=== PATIENT | male | born 1955 | race Caucasian/White ===

== ENCOUNTER 2019-01-31 14:12 | Inpatient (IN) | payer BC ==
[2019-01-31] MEDS ORDERED: Ondansetron ORAL SOLN. 4 MG/5 ML UDCUP PO PRN (14:41)
[2019-01-31] MEDS ORDERED: Ondansetron PF 4 MG/2 ML Vial ONE (14:50)
[2019-01-31] MEDS ORDERED: Morphine 2 MG/ML SYRINGE ONE (14:50)
[2019-01-31] MEDS ORDERED: HYDROcodone/Acetaminophen 5/325 mg Tablet PO PRN (15:01)
[2019-01-31] MEDS ORDERED: Bisacodyl 10 MG SUPP PR PRN (15:01)
[2019-01-31] MEDS ORDERED: Ondansetron PF 4 MG/2 ML Vial IVP PRN (15:01)
[2019-01-31] MEDS ORDERED: Guaifenesin DM 100-10/5 ML UDCUP PO PRN (15:01)
[2019-01-31] MEDS ORDERED: Senokot S 8.6-50 MG TAB PO PRN (15:01)
[2019-01-31] MEDS ORDERED: Sodium Chloride 0.9% 1,000 ML IV SCH (15:01)
--- NOTE | 2019-01-31 15:30 | HP ---
PRIMARY CARE PHYSICIAN: Carlitos Hernandez MD REASON FOR ADMISSION: Abdominal pain, nausea, liver mass, history of hepatitis C. HISTORY OF PRESENT ILLNESS: The patient gives history of having epigastric abdominal pain associated with nausea and with loss of appetite from last 3 days. The abdominal pain is a constant pain, which is 5 to 6/10 in intensity. It is a deep pain per the patient. He has not been able to eat or drink from last 3 days. He went to [facility], where blood work and CAT scan were done. He was found to have had liver mass and transferred here. The patient states he has had history of hepatitis C more than 20 years back and took ribavirin and interferon for 6 months, but did not complete the treatment. He states he could not tolerate it. No complaints of chest pain or palpitation. No complaints of black stools or jr bleeding. No prior history of pancreatic disease. The patient has noticed ecchymosis in both knees, back of his neck, right forearm. 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 His PEG was reversed. He is able to ambulate well with no residual paralysis now. Right hand surgery when he was 9 years old and has had transfusions done. He thinks that he might have gotten his hepatitis C then. 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 CURRENT MEDICATIONS: Takes; 1. Atorvastatin 40 mg daily. 2. Lisinopril 20 mg daily. 3. Aspirin 81 mg daily. 4. Loratadine 10 mg daily. ALLERGIES: NO KNOWN DRUG ALLERGIES. PERSONAL HISTORY: Quit smoking 4 years back when he had the stroke, prior to which has smoked 1 pack a day for 20 years. Currently drinks 2 mixed drinks a day. Uses marijuana occasionally. Does not abuse other drugs. His daughter stays with him. He ambulates by himself. FAMILY HISTORY: Mother at the age of 88. She has had history of coronary artery disease and hypertension. Father in his 90s from natural causes. CODE STATUS: Full. Power of city attorney is his daughter, Ms. Yamilet Paige. REVIEW OF SYSTEMS: CONSTITUTIONAL: Negative for weight loss or gain, ability to conduct usual activities. SKIN: Negative for rash, itching. EYES: Negative for double vision, pain. ENT/MOUTH: Negative for nose bleeding, neck stiffness, pain, tenderness. CARDIOVASCULAR: Negative for palpitations, dyspnea on exertion, orthopnea. RESPIRATORY: Negative for shortness of breath, wheezing, cough, hemoptysis, fever or night sweats. GASTROINTESTINAL: Negative for poor appetite, abdominal pain, heartburn, nausea , vomiting, constipation, or diarrhea. GENITOURINARY: Negative for urgency, frequency, dysuria, nocturia. MUSCULOSKELETAL: Negative for pain, swelling. NEUROLOGIC/PSYCHIATRIC: Negative for anxiety, depression. ALLERGY/IMMUNOLOGIC: Negative for skin rash, bleeding tendency. PHYSICAL EXAMINATION: GENERAL: The patient is a 63-year-old male, who is currently in moderate distress from abdominal pain. VITAL SIGNS: Blood pressure 146/94, pulse 78 per minute, respiratory rate 16 per minute, temperature 98.1 degrees Fahrenheit, and saturating 100% on room air. NECK: Supple. No elevated JVD. HEENT: Eyes; extraocular muscles intact. There is icterus plus. Oral cavity mucous membranes are moist. No exudates or congestion. CARDIOVASCULAR SYSTEM: S1 and S2 heard, regular rhythm. RESPIRATORY SYSTEM: Air entry 2+ bilateral. No rales or rhonchi. ABDOMEN: There is mass felt in the epigastric area, which is tender to palpate as well. This mass beneath the costal margin is around 6 x 10 cm. No rigidity or guarding. Bowel sounds are heard. EXTREMITIES: There is ecchymosis on bilateral knees on the medial aspect, posterior neck, and right forearm. These are raised ecchymotic patches. No calf tenderness. No edema. VASCULAR SYSTEM: Peripheral pulses 1+ bilateral. No ischemic ulcerations or gangrene. CENTRAL NERVOUS SYSTEM: No gross focal deficits noted. The patient is alert, awake, and oriented well. PSYCHIATRIC SYSTEM: The patient's the patient's mood is euthymic. No hallucinations or delusions. LABORATORY DATA: White count of 6, H and H are 14 and 46, platelet count 146, and MCV is 92 with 70% neutrophils. PT/INR within normal limits. PTT is 40. Electrolytes stable. BUN 13, creatinine 0.8, serum glucose 123, and lactic acid 2.9. AST 213, ALT 155, alkaline phosphatase 148, total bilirubin 1.6, albumin is 4.2. Lipase is 730. IMAGING DATA: CT of the abdomen and pelvis done shows a 13 x 9.3 x 9.5 cm heterogeneous mass in the gastrohepatic ligament. Origin of this mass could not be completely determined with certainty. Spleen is enlarged at 15.5 cm in length. There was colonic diverticulosis seen. CLINICAL IMPRESSION AND PLAN: The patient will be admitted to Oncology floor for large liver mass with prior history of hepatitis C. He has not completed full treatment for hepatitis C in the past and took 6 months of interferon and ribavirin. This was more than 20 years back per the patient. He has abdominal pain with likely hepatic capsule stretching with the mass. We will obtain an MRI of liver and pancreas protocol. Gastroenterology consultation with Dr. Blake Glynn will be requested. He has elevated lipase as well. We will continue him on 150 mL per hour of normal saline. A complete hepatitis panel and hepatitis C qualitative titers will be obtained. AFP levels. He will be on clear liquid diet for now. We will await MRI results to see if biopsy is needed or not and we will await GI opinion as well. Job ID: [id number] MTDD
[2019-01-31 17:09] VITALS: BMI 20.4
[2019-01-31] MEDS: Sodium Chloride 0.9% 1,000 ML IV SCH ×2 (17:10→20:11)
--- NOTE | 2019-01-31 17:43 | MRI ---
MRI ABDOMEN WITH AND WITHOUT IV CONTRAST: 01/31/19 HISTORY: Liver mass, abdominal pain. CORRELATION: CT abdomen and pelvis of same date. FINDINGS: The large heterogeneous mass in the gastrohepatic ligament measuring 13 x 9.3 x 9.5 cm is again seen and is located between the lesser curvature, liver, and the pancreas with loss of fat planes. There a re areas of hemorrhage and necrosis within this mass and postcontrast heterogeneous enhancement is s een. There are heterogeneous lesions in the left lobe of the liver measuring up to 2 cm. Some of these are likely metastatic lesions. The possibility of involvement of the liver itself by the mass cannot be completely excluded. Associated varicosity is seen. The spleen is enlarged. Bilateral renal cysts are present. Adrenal glands are unremarkable. The gallbladder is unremarkable. No free fluid or lymphadenopathy seen. The bone marrow signal is nor mal. There is no evidence of aneurysmal dilatation of the abdominal aorta. IMPRESSION: 1. Large heterogeneous mass in the gastrohepatic ligament suspicious for malignancy with metasta tic disease to the liver. 2. Splenomegaly. 3. Renal cysts. POS: CRISTINOH
[2019-01-31] MEDS ORDERED: GoLYTELY 4,000 ml Bottle PO SCH (19:30)
[2019-01-31] MEDS: Famotidine 20 MG TAB PO SCH (20:07)
[2019-01-31] MEDS: Atorvastatin Calcium 40 MG TAB PO SCH (20:07)
[2019-01-31 23:31] LABS: HBCM Index 0.06 S/CO (0-0.79); HBSAg Index 0.24 S/CO (0-0.99); Hep A IgM AB Non-Reactive (NonReactive); Hep A IgM S/CO 0.12 S/CO (0-0.79); Hep B Surf Ag Non-Reactive S/CO (NonReactive); Hepatitis B Core IgM Abs Non-Reactive (NonReactive)
[2019-01-31 23:35] LABS: Hep C IgG Ab Reflex HepC Qnt (NonReactive); Hep C Index 14.94 S/CO (0-0.79)
[2019-02-01] MEDS: Sodium Chloride 0.9% 1,000 ML IV SCH ×2 (00:46→06:00)
[2019-02-01] MEDS ORDERED: Ondansetron PF 4 MG/2 ML Vial ONE ×2 (06:57→11:08)
[2019-02-01] MEDS: Enoxaparin Sodium 40 MG/0.4 ML SYRINGE SC SCH (08:46)
[2019-02-01] MEDS: Famotidine 20 MG TAB PO SCH ×2 (08:46→20:16)
[2019-02-01] MEDS ORDERED: FLU VACC QS2019-20(6MOS UP)/PF 60 MCG/0.5 ML SYRINGE IM ONE (09:00)
[2019-02-01] MEDS ORDERED: Lisinopril 5 MG TAB PO SCH (09:00)
[2019-02-01] MEDS ORDERED: hydrALAZINE 20 MG/ML VIAL ONE ×2 (10:15→17:53)
[2019-02-01] MEDS: Morphine 2 MG/ML SYRINGE SLOW IVP PRN (10:23)
[2019-02-01] MEDS ORDERED: PROPOFOL 200 MG/20 ML VIAL ONE (10:57)
[2019-02-01] MEDS ORDERED: Lidocaine 1% PF 5 ML VIAL ONE (10:57)
--- NOTE | 2019-02-01 11:40 | CON ---
DATE OF CONSULTATION: 01/31/2019 REASON FOR CONSULTATION: Abnormal GI imaging showing a large hepatic mass, left upper quadrant abdominal pain. CONSULTING PROVIDER: Devante Cheema MD HISTORY OF PRESENT ILLNESS: The patient is a 63-year-old male with past medical history of hypertension, hyperlipidemia, rheumatoid arthritis, cerebrovascular accident with resultant dysphagia and hemiparesis, status post PEG but improvement with PEG removal and chronic hepatitis C with incomplete treatment with interferon/ribavirin, presenting with left upper quadrant abdominal pain. He states that over the last 2 to 3 months he has been having increased left upper quadrant abdominal pain characterized as a dull/deep type sensation. This pain has been intermittent during this time period, but occurring with more frequency within the last 2 weeks, now occurring every day. The pain will radiate to the midepigastric region and reaches a severity of 3/10. However, the patient denies any exacerbating factors, but notes that when he lies in a certain position, the pain does seem to get better/resolve. This has also been associated with increased rhinorrhea, a right upper extremity rash on the forearm nausea and vomiting x1 this morning with administration of medications. He also endorses increased polyuria, decreased urinary volume, decreased food intake and a 30-pound weight loss over the last year, but with the weight loss secondary to removal of his teeth and placement of dentures. He currently denies any hematemesis, melena, hematochezia, fevers, chills, or odynophagia. He does have some dysphagia resultant from his stroke, but is currently tolerating an oral diet without difficulty. With the increase of this abdominal pain, it prompted him to seek healthcare assistance at the [facility] and while in the ER he had a CT scan performed that showed a large mass within the abdomen concerning for involvement of the liver and ultimately transferred to [facility] for further evaluation. At the current time, the patient states that he does continue to have left upper quadrant abdominal pain, but is currently controlled with pain medications and denies any further episodes of vomiting. REVIEW OF SYSTEMS: A 10-category review of systems was obtained with all responses negative except for the pertinent positives as listed in HPI. PAST MEDICAL HISTORY: As per HPI. PAST SURGICAL HISTORY: Upper endoscopy with PEG tube placement, right hand surgery with blood transfusions at that time. FAMILY HISTORY: Denies any family history of colon polyps or colon cancer. However, his father was diagnosed with a benign liver tumor that was successfully resected. SOCIAL HISTORY: Denies any tobacco use, but currently smokes marijuana occasionally and drinks approximately 2 alcoholic beverages per day. He denies any other illicit drug use. OUTPATIENT MEDICATIONS: 1. Atorvastatin 40 mg daily. 2. Lisinopril 20 mg daily. 3. Aspirin 81 mg daily. 4. Loratadine 10 mg daily. 5. Benadryl p.r.n. ALLERGIES: NO KNOWN DRUG ALLERGIES. PHYSICAL EXAMINATION: VITAL SIGNS: Temperature 97.4, pulse 98, blood pressure 166/84, respiratory rate 18, saturating 95% on room air. GENERAL: The patient is lying in bed, in no acute distress. Alert and oriented x4. HEENT: Normocephalic, atraumatic. NECK: Supple. No JVD or scleral icterus noted. CARDIOVASCULAR: Regular rate and rhythm with no discernible murmurs, gallops, or rubs. RESPIRATORY: Clear to auscultation bilaterally with no discernible wheezes or rales. ABDOMEN: Normoactive bowel sounds. Soft, nondistended. Tenderness to palpation in the midepigastric and left upper quadrant with a palpable mass felt within the midepigastric, extending into the right upper quadrant. EXTREMITIES: No cyanosis, clubbing, or edema. LABORATORY DATA: CBC with a , hemoglobin 14.7, hematocrit 46.6, platelets 146. INR 1.1. Chemistry with a sodium of 137, potassium 4, chloride 98, CO2 of 25, BUN 13, creatinine 0.8, glucose 123. AST 213, ALT 155, alkaline phosphatase 148, total bilirubin 1.6, albumin 4.2, lipase 730, CEA 32.16. IMAGING DATA: MRI of the abdomen with and without contrast was obtained on January 31, 2019, which showed a large heterogeneous mass in the gastrohepatic ligament measuring 13 x 9.3 x 9.5 cm and located between the lesser curvature, liver and the pancreas with loss of fat planes. There was areas of hemorrhage and necrosis within the mass concerning for malignant type process. There were also heterogeneous lesions within the liver measuring up to 2 cm in size, likely metastatic lesions from the unknown primary. The possibility of involvement of the liver itself by the mass could not be completely excluded. Splenomegaly was also seen. CT scan of the abdomen and pelvis was performed on January 31, 2019, and it showed calcified granuloma within the left lung base, but did also comment on the heterogeneous mass in the gastrohepatic ligament measuring 13 x 9.3 x 9.5 cm with the fat planes between the mass and the left lobe of the liver, stomach and anterior aspect of pancreas not clearly identified. No abnormal biliary ductal dilatation was seen. However, splenomegaly was also seen during this study. There was no evidence of free air, free fluid or lymphadenopathy seen in the abdomen or pelvis, although colonic diverticulosis was seen within the large intestine. ASSESSMENT AND PLAN: The patient is a 63-year-old male with past medical history of hypertension, hyperlipidemia, cerebrovascular accident with resultant dysphagia status post percutaneous endoscopic gastrostomy, but recovery, rheumatoid arthritis and chronic hepatitis C infection (partially treated with 6 months of interferon/ribavirin), presenting with left upper quadrant abdominal pain and abnormal GI imaging consistent with a probable malignancy. Left upper quadrant abdominal pain/abnormal GI imaging. The patient has been experiencing increased left upper quadrant abdominal pain that has been present for the last 2 to 3 months and progressively getting more frequent over the last 1 to 2 weeks. The pain is characterized as a dull/deep tight sensation. It is intermittent with no clear exacerbating factors, but alleviated with certain positional changes. On evaluation in the [facility], he had a CT scan that showed the presence of a large mass within in the epigastrium that seems to be involving the liver and extension into the stomach and pancreas, but unclear of its involvement in either of the structures. On laboratory review, he does have significantly elevated AST and ALT indicative of the an inflammatory process affecting the liver, most likely secondary to this large mass. He does have a mildly elevated bilirubin, which is concerning for possible biliary obstruction or impending biliary obstruction, although the CT scan does not show any intrahepatic dilatation consistent with that diagnosis. Lastly, he does have an elevated carcinoembryonic antigen as well as an AFP greater than 40,000 concerning for a possible colonic primary or hepatocellular carcinoma respectively. At this time, the origin of the mass seems to be GI in origin. However, with it involving the liver, the stomach and the pancreas as well as metastatic lesions in the liver, a colonic primary cannot be ruled out at this time. RECOMMENDATIONS: 1. We would place the patient on a clear liquid diet and n.p.o. at midnight except for medications in anticipation of endoscopy tomorrow. 2. We will plan for both EGD and colonoscopy tomorrow for further evaluation of the GI tract and possible primary malignancy. 3. We will obtain hepatitis C serologies including viral load and genotype. 4. If the endoscopies are negative for overt pathology, the patient may need either surgical biopsy or fine-needle aspiration for more definitive diagnosis. However, with an AFP of greater than 40,000, if an intraluminal malignancy is not found hepatocellular carcinoma is the most likely origin. 5. Pain control per primary team. 6. We will continue to follow. Please call with any questions. Job ID: [id number]
[2019-02-01 12:54] LABS: #Eosinphils 0.1 thou/uL (0.0-0.7); #Lymphocytes 1.2 thou/uL (1.20-3.40); #Monocytes 0.6 thou/uL (0.11-0.59); #Neutrophils 4.2 thou/uL (1.40-6.50); %Basophils 0.5 % (0.0-1.0); %Eosinophils 2.1 % (0.0-10.0); %Lymphocytes 19.8 % (21.0-51.0); %Monocytes 10.1 % (0.0-10.0); %Neutrophils 67.5 % (42.0-75.0); Hemoglobin 12.3 g/dL (14.0-18.0); Mean Corpuscular HGB CONC 32.2 g/dL (32.0-36.0); Mean Corpuscular Volume 93.1 fL (78.0-98.0); Mean Platelet Volume 9.7 fL (7.4-10.4); Platelet Count 137 thou/uL (130-400); RBC Distribution Width 12.8 % (11.5-14.5); White Blood Cell (WBC) Count 6.3 thou/uL (4.8-10.8)
--- NOTE | 2019-02-01 13:54 | OP ---
DATE OF PROCEDURE: 02/01/2019 PROCEDURES PERFORMED: 1. Esophagogastroduodenoscopy. 2. Colonoscopy. PREMEDICATION: Given by Anesthesiology Department. PREPROCEDURE DIAGNOSIS: Large upper abdominal mass, on CT. POSTPROCEDURE DIAGNOSES: 1. Normal upper endoscopy. 2. Diverticulosis coli, otherwise normal colon exam. DESCRIPTION OF PROCEDURE: Written consents were obtained prior to procedure. After adequate sedation, forward-viewing endoscope was advanced down the stomach under direct vision to the second portion of duodenum. The duodenum and the bulb appeared normal. The pylorus was patent. The gastric antrum, body, fundus, and cardia all appeared normal. Retroflexion did not show any abnormality. The GE junction with a regular Z-line was noted at 43 cm from the incisors. The lower, mid, and upper esophagus appeared normal. The patient was then repositioned for colonoscopy. Rectal exam performed was normal. The endoscope was advanced to the cecum. The quality of the bowel prep was good. The cecum, ileocecal valve, and appendiceal orifice were visualized and appeared normal. The ascending colon, hepatic flexure, transverse colon, splenic flexure, and descending colon appeared normal. Scattered diverticula were noted in the sigmoid colon with some intraluminal narrowing. The rectal vault appeared normal. Retroflexion showed small internal hemorrhoids. The patient tolerated the procedure well. ASSESSMENT: Normal upper endoscopy and colonoscopy. RECOMMENDATIONS: Consult Interventional Radiology for percutaneous biopsy of the mass seen on CT and MRI. Job ID: [id number]
[2019-02-01] MEDS: Acetaminophen 325 MG TAB PO PRN (16:28)
[2019-02-01] MEDS: Lidocaine 5% Patch TD SCH (16:29)
[2019-02-01] MEDS ORDERED: Labetalol HCl 100 MG/20 ML VIAL SLOW IVP PRN (17:11)
[2019-02-01] MEDS ORDERED: hydrALAZINE 20 MG/ML VIAL SLOW IVP PRN (17:11)
[2019-02-01] MEDS ORDERED: Lisinopril 20 MG TAB PO SCH (17:15)
--- NOTE | 2019-02-01 17:19 | PDOC.HOSPP ---
- Subjective Encounter Date: 02/01/19 Encounter Time: 09:00 Subjective: Pt seen for followup re: liver mass. Denies chest pain or shortness of breath. Endorses LUQ discomfort. - Objective Vital Signs & Weight: Vital Signs (12 hours) Temp Pulse Resp BP BP Pulse Ox 02/01/19 16:00 97.8 F 96 16 202/96 H 96 02/01/19 13:22 98.1 F 91 18 172/91 H 97 02/01/19 10:18 99 205/113 H 02/01/19 08:46 99 178/100 H Weight Weight 142 lb 2 oz Labs and MARs reviewed by me I&O: 01/31/19 02/01/19 02/02/19 06:59 06:59 06:59 Intake Total 700 Balance 700 Result Diagrams: 02/01/19 07:00 Additional Labs: Labs and MARs reviewed by mt Hospitalist ROS - Review of Systems Cardiovascular: denies: chest pain, palpitations, orthopnea, paroxysmal noc. dyspnea, edema, light headedness Gastrointestinal: reports: abdominal pain. denies: nausea, vomiting, diarrhea, constipation, melena, hematochezia Skin: reports: marta - Medication Medications: Active Medications Generic Name Dose Route Start Last Admin Trade Name Freq PRN Reason Stop Dose Admin Acetaminophen 650 mg 01/31/19 15:01 02/01/19 16:28 Tylenol PO 650 mg Q4H PRN Administration Headache/Fever/Mild Pain (1-3) Atorvastatin Calcium 40 mg 01/31/19 21:00 01/31/19 20:07 Lipitor PO 40 mg HS RUIZ Administration Enoxaparin Sodium 40 mg 02/01/19 09:00 02/01/19 08:46 Lovenox SC Not Given 0900 RUIZ Famotidine 20 mg 01/31/19 21:00 02/01/19 08:46 Pepcid PO Not Given BID RUIZ Lidocaine 2 patch 02/01/19 09:00 02/01/19 16:29 Lidoderm 5% Patch TD Not Given DAILY RUIZ Morphine Sulfate 2 mg 01/31/19 15:01 02/01/19 10:23 Morphine SLOW IVP 2 mg Q4H PRN Administration Pain - Exam General Appearance: NAD Eye: scleral icterus ENT: normocephalic atraumatic Neck: supple, no JVD Heart: RRR Respiratory: CTAB, no rales Gastrointestinal: soft, non-tender Psychiatric: normal affect, normal behavior Hosp A/P (1) Liver mass Code(s): R16.0 - HEPATOMEGALY, NOT ELSEWHERE CLASSIFIED Status: Acute (2) Hypertensive urgency Code(s): I16.0 - HYPERTENSIVE URGENCY Status: Acute (3) Abnormal LFTs Code(s): R94.5 - ABNORMAL RESULTS OF LIVER FUNCTION STUDIES Status: Acute (4) Dyslipidemia Code(s): E78.5 - HYPERLIPIDEMIA, UNSPECIFIED Status: Chronic - Plan out of bed/ambulate Pt to have EGD. Add PRN IV antihypertensives, monitor vital signs and titrate antihypertensives as needed. Continue statin.
[2019-02-01 19:45] LABS: ALT (SGPT) 106 U/L (8-55); AST (SGOT) 163 U/L (5-34); Albumin 3.4 g/dL (3.4-4.8); Alkaline Phosphatase 101 U/L (40-110); Anion Gap 12 mmol/L (10-20); BUN (Urea Nitrogen) 8 mg/dL (8.4-25.7); Bilirubin, Total 1.3 mg/dL (0.2-1.2); Calc. Creatinine Clearance 103 mL/min (70-130); Calcium 8.6 mg/dL (7.8-10.44); Carbon Dioxide 24 mmol/L (23-31); Chloride 106 mmol/L (98-107); Estimated GFR-MDRD Greater than 90; Globulin 2.8 g/dL (2.4-3.5); Glucose 95 mg/dL (80-115); Potassium 3.7 mmol/L (3.5-5.1); Protein, Total 6.2 g/dL (5.8-8.1); Sodium 138 mmol/L (136-145)
[2019-02-01] MEDS: Atorvastatin Calcium 40 MG TAB PO SCH (20:16)
[2019-02-02] MEDS: Acetaminophen 325 MG TAB PO PRN ×2 (00:43→17:48)
[2019-02-02] MEDS: Morphine 2 MG/ML SYRINGE SLOW IVP PRN ×2 (06:03→17:37)
[2019-02-02 06:08] LABS: #Basophils 0.1 thou/uL (0.0-0.2); #Eosinphils 0.1 thou/uL (0.0-0.7); #Lymphocytes 1.5 thou/uL (1.20-3.40); #Monocytes 1.1 thou/uL (0.11-0.59); %Basophils 0.7 % (0.0-1.0); %Eosinophils 1.2 % (0.0-10.0); %Lymphocytes 14.1 % (21.0-51.0); %Monocytes 10.5 % (0.0-10.0); %Neutrophils 73.5 % (42.0-75.0); Hemoglobin 13.3 g/dL (14.0-18.0); Mean Corpuscular HGB CONC 32.4 g/dL (32.0-36.0); Mean Corpuscular Hemoglobin 29.6 pg (27.0-31.0); Mean Corpuscular Volume 91.5 fL (78.0-98.0); Platelet Count 170 thou/uL (130-400); RBC Distribution Width 12.9 % (11.5-14.5); Red Blood Cell (RBC) Count 4.48 mill/uL (4.70-6.10); White Blood Cell (WBC) Count 10.8 thou/uL (4.8-10.8)
[2019-02-02] MEDS ORDERED: Atorvastatin Calcium 40 MG TAB PO SCH (09:00)
[2019-02-02] MEDS ORDERED: Midazolam HCl 2 mg/2 ml Vial ONE (10:52)
[2019-02-02] MEDS ORDERED: Sodium Bicarbonate 2.5 MEQ/5 ML VIAL ONE (10:52)
[2019-02-02] MEDS ORDERED: Fentanyl 100 MCG/2 ML VIAL ONE (10:52)
[2019-02-02] MEDS: Lidocaine 5% Patch TD SCH (11:29)
[2019-02-02] MEDS: Famotidine 20 MG TAB PO SCH ×2 (14:33→20:25)
[2019-02-02] MEDS: Lisinopril 20 MG TAB PO SCH (14:34)
--- NOTE | 2019-02-02 15:09 | CT ---
CT-guided large intra-abdominal mass percutaneous core biopsy INDICATION: Large heterogeneous mass, centered within the gastrohepatic ligament concern for possible GI ST, a sarcomatous lesion or exophytic hepatic malignancy. TECHNIQUE: Informed consent was obtained. Preprocedure CT images were obtained for guidance purposes only. Site overlying the large intra-abdominal mass lesion was marked. The site was prepped and draped in the usual sterile fashion. The patient underwent conscious sedation guidance of the radiolo gy nurse. The patient received 1.5 mg of IV Versed and 100 mcg of IV fentanyl. Buffered 1% lidocaine was administered to the overlying subcutaneous tissues. Small dermatotomy was made. A 17-ga uge trocar needle was guided down to the level of the lesion. 3 core samples were obtained utilizing an 18-gauge core biopsy gun. Pathology was on-site to confirm adequacy of tissue sampling. Small pledget of Gelfoam was inserted into the trocar needle and injected into the biopsy site prior to removal of the trocar needle. Pressure was held at the biopsy site until hemostasis was obta ined. Patient tolerated the biopsy without difficulty. Postprocedural images initially no significant intralesional hemorrhage or intra-abdominal wall hemorrhage noted. IMPRESSION: Successful CT-guided biopsy of a large intra-abdominal mass.
--- NOTE | 2019-02-02 15:27 | PDOC.HOSPP ---
- Subjective Encounter Date: 02/02/19 Encounter Time: 09:00 Subjective: Pt seen for followup re: liver mass. States he feels better, no complaints today. - Objective Vital Signs & Weight: Vital Signs (12 hours) Temp Pulse Resp BP BP Pulse Ox 02/02/19 14:34 185/92 H 02/02/19 11:30 84 185/92 H 02/02/19 08:00 99.0 F 84 18 174/93 H 96 Weight Weight 142 lb 2 oz I&O: 02/01/19 02/02/19 02/03/19 06:59 06:59 06:59 Intake Total 700 240 Balance 700 240 Result Diagrams: 02/02/19 05:35 02/01/19 07:00 Additional Labs: Labs and MARs reviewed by hi Hospitalist ROS - Review of Systems Cardiovascular: denies: chest pain, palpitations, orthopnea, paroxysmal noc. dyspnea, edema, light headedness Gastrointestinal: denies: nausea, vomiting, abdominal pain, diarrhea, constipation, melena, hematochezia - Medication Medications: Active Medications Generic Name Dose Route Start Last Admin Trade Name Freq PRN Reason Stop Dose Admin Acetaminophen 650 mg 01/31/19 15:01 02/02/19 00:43 Tylenol PO 650 mg Q4H PRN Administration Headache/Fever/Mild Pain (1-3) Atorvastatin Calcium 40 mg 01/31/19 21:00 02/01/19 20:16 Lipitor PO 40 mg HS RUIZ Administration Enoxaparin Sodium 40 mg 02/01/19 09:00 02/01/19 08:46 Lovenox SC Not Given 0900 [facility] Famotidine 20 mg 01/31/19 21:00 02/02/19 14:33 Pepcid PO 20 mg BID RUIZ Administration Hydralazine HCl 10 mg 02/01/19 17:11 02/02/19 11:30 Apresoline SLOW IVP 10 mg Q6H PRN Administration SBP Greater Than 170 Lidocaine 2 patch 02/01/19 09:00 02/02/19 11:29 Lidoderm 5% Patch TD Not Given DAILY RUIZ Lisinopril 20 mg 02/02/19 09:00 02/02/19 14:34 Zestril PO 20 mg DAILY RUIZ Administration Morphine Sulfate 2 mg 01/31/19 15:01 02/02/19 06:03 Morphine SLOW IVP 2 mg Q4H PRN Administration Pain - Exam General Appearance: NAD Eye: scleral icterus ENT: moist mucosa Neck: supple, no JVD Heart: RRR Respiratory: CTAB, no rales Gastrointestinal: soft, non-tender Extremities: no clubbing Psychiatric: normal affect, normal behavior Hosp A/P (1) Liver mass Code(s): R16.0 - HEPATOMEGALY, NOT ELSEWHERE CLASSIFIED Status: Acute (2) Abnormal LFTs Code(s): R94.5 - ABNORMAL RESULTS OF LIVER FUNCTION STUDIES Status: Acute (3) Dyslipidemia Code(s): E78.5 - HYPERLIPIDEMIA, UNSPECIFIED Status: Chronic (4) Hypertensive urgency Code(s): I16.0 - HYPERTENSIVE URGENCY Status: Resolved - Plan out of bed/ambulate For biopsy today. Morphine PRN for pain. Continue statin.
--- NOTE | 2019-02-02 17:06 | PRG ---
DATE OF SERVICE: 02/02/2019 SUBJECTIVE: The patient appears comfortable. Continues with low-grade upper abdominal pain. There is no nausea or vomiting. He had an uncomplicated percutaneous CT-guided biopsy of the abdominal mass earlier this afternoon. OBJECTIVE: VITAL SIGNS: Temperature is 99.0, blood pressure 185/92, pulse of 84. GENERAL: He is alert, lucid, in no distress. HEENT: Shows anicteric sclerae. There is some temporal wasting. Oropharynx is clear. Poor dentition. CV: Shows normal S1 and S2. Regular rate and rhythm. CHEST: Shows breath sounds. ABDOMEN: Showed a palpable firm mass in the upper third of the abdomen. He has active bowel sounds. No distention or tympany. EXTREMITIES: Exam shows no edema. LABORATORY DATA: WBCs 10.8, hemoglobin 13.3, platelet count of 170. ASSESSMENT: 1. Large upper abdominal mass, status post percutaneous CT-guided biopsy. Likely, malignancy. 2. Negative esophagogastroduodenoscopy and colonoscopy. 3. Overall stable from gastrointestinal standpoint with intact gastrointestinal function. RECOMMENDATIONS: 1. No new GI recommendation. 2. Await biopsy results. We will likely need Oncology evaluation in or outpatient. Job ID: [id number]
[2019-02-02] MEDS ORDERED: Acetaminophen 325 MG TAB PO PRN (18:17)
[2019-02-02] MEDS: Atorvastatin Calcium 40 MG TAB PO SCH (20:25)
[2019-02-03] MEDS: Morphine 2 MG/ML SYRINGE SLOW IVP PRN ×3 (02:42→16:12)
[2019-02-03 05:59] LABS: #Eosinphils 0.1 thou/uL (0.0-0.7); #Lymphocytes 1.4 thou/uL (1.20-3.40); #Neutrophils 5.5 thou/uL (1.40-6.50); %Basophils 0.5 % (0.0-1.0); %Eosinophils 1.5 % (0.0-10.0); %Lymphocytes 17.4 % (21.0-51.0); %Monocytes 12.2 % (0.0-10.0); %Neutrophils 68.5 % (42.0-75.0); Hemoglobin 11.4 g/dL (14.0-18.0); Mean Corpuscular HGB CONC 33.5 g/dL (32.0-36.0); Mean Corpuscular Hemoglobin 30.3 pg (27.0-31.0); Mean Corpuscular Volume 90.6 fL (78.0-98.0); Mean Platelet Volume 8.8 fL (7.4-10.4); Platelet Count 130 thou/uL (130-400); RBC Distribution Width 12.5 % (11.5-14.5); Red Blood Cell (RBC) Count 3.75 mill/uL (4.70-6.10)
[2019-02-03] MEDS: Lidocaine 5% Patch TD SCH (08:02)
[2019-02-03] MEDS: Acetaminophen 325 MG TAB PO PRN ×2 (08:02→17:28)
[2019-02-03] MEDS: Lisinopril 20 MG TAB PO SCH (08:02)
[2019-02-03] MEDS: Famotidine 20 MG TAB PO SCH ×2 (08:02→20:19)
[2019-02-03] MEDS ORDERED: Simethicone Chewable 80 MG TAB PO PRN (13:00)
--- NOTE | 2019-02-03 18:23 | PDOC.HOSPP ---
- Subjective Encounter Date: 02/03/19 Encounter Time: 08:40 Subjective: Pt seen for followup re: liver mass. No complaints today. - Objective Vital Signs & Weight: Vital Signs (12 hours) Temp Pulse Resp BP BP BP Pulse Ox 02/03/19 18:11 99.0 F 02/03/19 17:23 102.7 F H 158/89 H 02/03/19 16:23 100.2 F H 84 16 180/90 H 94 L 02/03/19 11:15 99.5 F 81 16 137/83 97 02/03/19 08:02 168/93 H 02/03/19 07:58 86 L 02/03/19 07:30 100.2 F H 86 18 168/93 H 96 Weight Weight 142 lb 2 oz I&O: 02/02/19 02/03/19 02/04/19 06:59 06:59 06:59 Intake Total 751 915 5947 Balance 454 918 1505 Result Diagrams: 02/03/19 05:38 02/01/19 07:00 Additional Labs: Labs and MARs reviewed by ms Hospitalist ROS - Review of Systems Cardiovascular: denies: chest pain, palpitations, orthopnea, paroxysmal noc. dyspnea, edema, light headedness Gastrointestinal: denies: nausea, vomiting, abdominal pain, diarrhea, constipation, melena, hematochezia Genitourinary: denies: dysuria, frequency, incontinence, hematuria, retention - Medication Medications: Active Medications Generic Name Dose Route Start Last Admin Trade Name Freq PRN Reason Stop Dose Admin Acetaminophen 325 mg 02/02/19 18:29 02/03/19 17:28 Tylenol PO 325 mg Q6H PRN Administration .FEVER Atorvastatin Calcium 40 mg 01/31/19 21:00 02/02/19 20:25 Lipitor PO 40 mg HS RUIZ Administration Enoxaparin Sodium 40 mg 02/01/19 09:00 02/01/19 08:46 Lovenox SC Not Given 0900 RUIZ Famotidine 20 mg 01/31/19 21:00 02/03/19 08:02 Pepcid PO 20 mg BID RUIZ Administration Hydralazine HCl 10 mg 02/01/19 17:11 02/02/19 11:30 Apresoline SLOW IVP 10 mg Q6H PRN Administration SBP Greater Than 170 Labetalol HCl 10 mg 02/01/19 17:11 02/02/19 17:34 Normodyne SLOW IVP 10 mg Q8H PRN Administration SBP Greater Than 180 Lidocaine 2 patch 02/01/19 09:00 02/03/19 08:02 Lidoderm 5% Patch TD 2 patch DAILY RUIZ Administration Lisinopril 20 mg 02/02/19 09:00 02/03/19 08:02 Zestril PO 20 mg DAILY RUIZ Administration Morphine Sulfate 2 mg 01/31/19 15:01 02/03/19 16:12 Morphine SLOW IVP 2 mg Q4H PRN Administration Pain - Exam General Appearance: NAD Eye: scleral icterus ENT: no oropharyngeal lesions Neck: no JVD, no thyromegaly Heart: RRR, no gallops Respiratory: CTAB, no rales, no ronchi Gastrointestinal: soft, non-tender Extremities - other findings: rheumatoid changes in fingers Skin: no rashes Psychiatric: normal affect, normal behavior Hosp A/P (1) Liver mass Code(s): R16.0 - HEPATOMEGALY, NOT ELSEWHERE CLASSIFIED Status: Acute (2) Abnormal LFTs Code(s): R94.5 - ABNORMAL RESULTS OF LIVER FUNCTION STUDIES Status: Acute (3) Dyslipidemia Code(s): E78.5 - HYPERLIPIDEMIA, UNSPECIFIED Status: Chronic (4) Hypertensive urgency Code(s): I16.0 - HYPERTENSIVE URGENCY Status: Resolved - Plan out of bed/ambulate s/p biopsy Morphine PRN for pain. Continue statin. Consult oncology. Likely home in 24-48 hrs.
[2019-02-03] MEDS: Atorvastatin Calcium 40 MG TAB PO SCH (20:18)
--- NOTE | 2019-02-03 22:49 | CON ---
DATE OF CONSULTATION: REASON FOR CONSULTATION: Abdominal mass. HISTORY OF PRESENT ILLNESS: Mr. Paige is a 63-year-old gentleman, who presented to an outlying ER with abdominal pain and weight loss. He underwent a CT scan, which showed a 13 x 9.3 x 9.5 cm mass in the gastrohepatic ligament. He had a splenomegaly measuring 15.5 cm. He was transferred to this facility and admitted for further workup. GI saw the patient and performed upper and lower endoscopy, both of which were normal. He then had a CT-guided biopsy of this mass. Path is currently pending. The patient claims a 50-pound weight loss over the past year. He initially blamed his new dentures as it hurt to eat, but does admit now to early satiety and fullness with just a few bites of food. He has a history of hepatitis C that was partially treated in the past. The patient was seen at bedside and denies any complaints. His daughter was present for the conversation. PAST MEDICAL HISTORY: Hepatitis C, hypertension, hyperlipidemia, rheumatoid arthritis, history of a CVA with no residual effect. PAST SURGICAL HISTORY: PEG tube placement, right hand surgery. ALLERGIES: NO KNOWN DRUG ALLERGIES. HOME MEDICATIONS: 1. Aspirin. 2. Atorvastatin. 3. Lisinopril. 4. Loratadine. FAMILY HISTORY: Father had a benign liver tumor. SOCIAL HISTORY: Positive for marijuana and alcohol use. Lives with his daughter. REVIEW OF SYSTEMS: A 10-point review of systems is negative except for noted in HPI. PHYSICAL EXAMINATION: VITAL SIGNS: Temperature is 100.2, pulse is 84, respiratory rate 16, BP is 180/90, he is 94% on room air. GENERAL: This is a thin male, who appears older than his stated age. HEENT: Normocephalic, atraumatic. Pupils are equal and reactive to light. NECK: Supple. CV: Regular rate and rhythm. LUNGS: Clear anterior. ABDOMEN: Distended. He has hepatosplenomegaly. EXTREMITIES: No clubbing or cyanosis. SKIN: No rash. HEMATOLOGICAL: No petechiae or purpura. NEUROLOGICAL: Nonfocal. PERTINENT LABS AND X-RAYS: Current WBCs are 8.0, hemoglobin 11.4, hematocrit 34.0, platelet count is 130,000. He has 68% neutrophils, 17% lymphocytes. PT is 14.5, INR is 1.1, and PTT is 40.1. Sodium is 138, potassium 3.7, chloride is 106, CO2 is 24, BUN is 8, creatinine is 0.66, calcium is 8.6, bilirubin is 1.3, AST is 163, ALT is 106, alkaline phosphatase is 101. AFP is greater than 40,000. CEA is 32. Radiology, per HPI. ASSESSMENT: 1. Large abdominal mass involving the liver with extension to the stomach and pancreas. 2. Elevated alpha-fetoprotein and carcinoembryonic antigen. 3. History of hepatitis C. DISCUSSION: The patient has had this mass biopsied. Path is currently pending. Given his elevated tumor markers, certainly has a malignancy of either a hepatoma or a colon primary. The patient will follow up with Dr. Phelan in the outpatient setting to discuss diagnosis, prognosis, and treatment options. Thank you for the consult. Job ID: [id number]
[2019-02-04] MEDS: Acetaminophen 325 MG TAB PO PRN (04:46)
[2019-02-04] MEDS: Morphine 2 MG/ML SYRINGE SLOW IVP PRN ×2 (04:47→19:00)
[2019-02-04 07:02] LABS: #Basophils 0.1 thou/uL (0.0-0.2); #Eosinphils 0.2 thou/uL (0.0-0.7); #Monocytes 1.2 thou/uL (0.11-0.59); #Neutrophils 6.4 thou/uL (1.40-6.50); %Basophils 0.6 % (0.0-1.0); %Eosinophils 1.9 % (0.0-10.0); %Lymphocytes 11.2 % (21.0-51.0); %Monocytes 13.3 % (0.0-10.0); Mean Corpuscular HGB CONC 33.4 g/dL (32.0-36.0); Mean Corpuscular Hemoglobin 30.1 pg (27.0-31.0); Mean Corpuscular Volume 90.3 fL (78.0-98.0); Mean Platelet Volume 8.6 fL (7.4-10.4); Platelet Count 148 thou/uL (130-400); RBC Distribution Width 12.6 % (11.5-14.5); Red Blood Cell (RBC) Count 3.98 mill/uL (4.70-6.10); White Blood Cell (WBC) Count 8.7 thou/uL (4.8-10.8)
[2019-02-04] MEDS: Famotidine 20 MG TAB PO SCH ×2 (08:47→20:03)
[2019-02-04] MEDS: Lisinopril 20 MG TAB PO SCH (08:47)
[2019-02-04] MEDS: Lidocaine 5% Patch TD SCH (08:48)
[2019-02-04] MEDS: Enoxaparin Sodium 40 MG/0.4 ML SYRINGE SC SCH (08:48)
--- NOTE | 2019-02-04 15:35 | RAD ---
EXAM: Chest 2 views: HISTORY: Infection COMPARISON: None. FINDINGS: There is a normal-sized cardiomediastinal silhouette. Atherosclerotic calcifications are seen in the aorta. There is no evidence of consolidation, mass, or pleural effusion. The bones are unremarkable. IMPRESSION: No evidence of acute cardiopulmonary disease
[2019-02-04 15:54] LABS: Bacteria/HPF None Seen HPF (None Seen); Bilirubin 1+ (Negative); Blood, Urine 2+ (Negative); Clarity Clear (Clear); Glucose, Urine (Dipstick) Normal (Negative); Leukocyte Negative Leu/uL (Negative); Nitrite Negative (Negative); Protein, Urine (Dipstick) 70 mg/dL (Neg-Trace); Squamous Epithelial None Seen HPF (0-3); Urobilinogen Greater than 12 mg/dL (Less than 2); WBC/HPF 0-3 HPF (0-3)
[2019-02-04 15:56] LABS: Urine Culture Reflex No No
--- NOTE | 2019-02-04 16:39 | PDOC.HOSPP ---
- Subjective Encounter Date: 02/04/19 Encounter Time: 10:00 Subjective: Pt seen for followup re: liver mass. No complaints. - Objective Vital Signs & Weight: Vital Signs (12 hours) Temp Pulse Resp BP BP Pulse Ox 02/04/19 15:48 98.4 F 93 17 160/90 H 95 02/04/19 11:25 98.9 F 90 16 156/81 H 97 02/04/19 08:47 137/82 02/04/19 08:40 96 02/04/19 07:33 98.9 F 71 18 137/82 96 02/04/19 06:46 99 F Weight Weight 142 lb 2 oz I&O: 02/03/19 02/04/19 02/05/19 06:59 06:59 06:59 Intake Total 240 1350 Balance 240 1350 Result Diagrams: 02/04/19 06:26 02/01/19 07:00 Additional Labs: Labs reviewed by mo Hospitalist ROS - Review of Systems Constitutional: denies: fever, chills, sweats, weakness, malaise Cardiovascular: denies: chest pain, palpitations, orthopnea, paroxysmal noc. dyspnea, edema, light headedness - Medication Medications: Active Medications Generic Name Dose Route Start Last Admin Trade Name Freq PRN Reason Stop Dose Admin Acetaminophen 325 mg 02/02/19 18:29 02/04/19 04:46 Tylenol PO 325 mg Q6H PRN Administration .FEVER Hydrocodone Bitart/Acetaminophen 1 tab 01/31/19 15:01 02/03/19 20:18 [place] 5/325 PO 1 tab Q4H PRN Administration Moderate Pain (4-6) Atorvastatin Calcium 40 mg 01/31/19 21:00 02/03/19 20:18 Lipitor PO 40 mg HS RUIZ Administration Enoxaparin Sodium 40 mg 02/01/19 09:00 02/04/19 08:48 Lovenox SC Not Given 0900 RUIZ Famotidine 20 mg 01/31/19 21:00 02/04/19 08:47 Pepcid PO 20 mg BID RUIZ Administration Hydralazine HCl 10 mg 02/01/19 17:11 02/02/19 11:30 Apresoline SLOW IVP 10 mg Q6H PRN Administration SBP Greater Than 170 Labetalol HCl 10 mg 02/01/19 17:11 02/02/19 17:34 Normodyne SLOW IVP 10 mg Q8H PRN Administration SBP Greater Than 180 Lidocaine 2 patch 02/01/19 09:00 02/04/19 08:48 Lidoderm 5% Patch TD 2 patch DAILY RUIZ Administration Lisinopril 20 mg 02/02/19 09:00 02/04/19 08:47 Zestril PO 20 mg DAILY RUIZ Administration Morphine Sulfate 2 mg 01/31/19 15:01 02/04/19 04:47 Morphine SLOW IVP 2 mg Q4H PRN Administration Pain - Exam General Appearance: NAD Eye: scleral icterus ENT: normocephalic atraumatic Neck: supple Heart: RRR Respiratory: CTAB, no rales Gastrointestinal: soft, non-tender Musculoskeletal: normal tone, normal strength Psychiatric: normal affect, normal behavior, oriented to person, oriented to place Hosp A/P (1) Liver mass Code(s): R16.0 - HEPATOMEGALY, NOT ELSEWHERE CLASSIFIED Status: Acute (2) Abnormal LFTs Code(s): R94.5 - ABNORMAL RESULTS OF LIVER FUNCTION STUDIES Status: Acute (3) Dyslipidemia Code(s): E78.5 - HYPERLIPIDEMIA, UNSPECIFIED Status: Chronic (4) Hypertensive urgency Code(s): I16.0 - HYPERTENSIVE URGENCY Status: Resolved - Plan out of bed/ambulate s/p biopsy Morphine PRN for pain. Continue statin. Consult oncology. Likely home in 24-48 hrs.
[2019-02-04] MEDS: Atorvastatin Calcium 40 MG TAB PO SCH (20:03)
[2019-02-05] MEDS: Morphine 2 MG/ML SYRINGE SLOW IVP PRN (01:54)
[2019-02-05 07:38] VITALS: BP 148/83
[2019-02-05] MEDS: Enoxaparin Sodium 40 MG/0.4 ML SYRINGE SC SCH (08:54)
[2019-02-05] MEDS: Lisinopril 20 MG TAB PO SCH (08:55)
[2019-02-05] MEDS: Famotidine 20 MG TAB PO SCH (08:55)
[2019-02-05] MEDS: Lidocaine 5% Patch TD SCH (08:56)
[2019-02-05 11:46] VITALS: TEMP 98.9
--- NOTE | 2019-02-05 23:55 | DIS ---
DATE OF ADMISSION: 01/31/2019 DATE OF DISCHARGE: 02/05/2019 PRIMARY CARE PROVIDER: Dr. Carlitos Hernandez. DISCHARGE DIAGNOSES: 1. Liver mass. 2. Abnormal liver function tests. 3. Hypertensive urgency. CONDITION OF PATIENT ON THE DAY OF DISCHARGE: Stable. I assessed Mr. Paige on the day of discharge. He denies any chest pain or shortness of breath. Vital signs are stable. S1 and S2 are heard, regular. Lungs are clear to auscultation bilaterally. CONSULTATIONS DURING THIS HOSPITALIZATION: Gastroenterology, Dr. Glynn and Oncology, Ms. Kaitlyn Sharpegent. POST-ACUTE CARE FOLLOWUP: With primary care provider in 3 days' time and with Oncology, Dr. Richard Phelan on 02/16/2019. HOSPITAL COURSE: Mr. Paige is a pleasant 63-year-old gentleman, who was admitted to [facility] for liver mass and abnormal liver function tests on 01/31/2019. Please refer to Dr. Cheema's history and physical note dated 01/31/2019, for further details. He was seen by GI Service. He underwent EGD and colonoscopy, which were normal. He then underwent CT-guided biopsy of the liver mass. He was seen by Oncology Service and will be followed up as outpatient. He is being discharged home in a stable condition. He had episodes of fever during this hospitalization. However, there was no evidence of infection. Fevers are presumably secondary to the malignancy. He has been advised to seek medical help if he develops any symptoms of infection. During this hospitalization, his AFP was greater than 40,000, CEA was elevated at 32.16. On 02/01, he had normal electrolytes, creatinine 0.66, total bilirubin 1.3, AST 163, ALT 106, and alkaline phosphatase 101. On 02/04, he had normal white count, normocytic anemia with hemoglobin 12, and normal platelet count. DISCHARGE MEDICATIONS: 1. Aspirin 81 mg daily. 2. Lipitor 40 mg daily. 3. Lisinopril 20 mg daily. 4. Lidoderm 5% patch, two patches daily. 5. Loratadine 10 mg as needed. 6. Tylenol 325 mg every 6 hours as needed. Many thanks for allowing me to participate in your patient's care. Please feel free to contact me with any questions or concerns. DIET: Heart Healthy. ACTIVITY: As tolerated. DISCHARGE DESTINATION: Home. TIME SPENT: Total amount of time spent coordinating this discharge: 32 minutes. Job ID: [id number] MTDD
[2019-02-07 12:09] LABS: HCV log10 5.548 (.); Hep C PCR-Quant 353000 IU/mL (.)
--- NOTE | 2019-02-08 17:28 | PQF ---
LINDA GAVIRIA DAVID [id number] CLINICAL DOCUMENTATION CLARIFICATION FORM: POST DISCHARGE Addendum to original discharge summary date: ____ Late entry note date: __ DATE:02/08/19 ATTN: Roberto Silva Please exercise your independent, professional judgment in responding to the clarification form. Clinical indicators are provided on the bottom of this form for your review Final Diagnosis on the Pathology report: Malignant Carcinoma, most consistent with poorly differentiated hepatocellular carcinoma Clarification of Pathology report: Please check appropriate box(s): [ x ] Agree w the pathology finding of: Malignant Carcinoma, most consistent with poorly differentiated hepatocellular carcinoma [ ] Other explanation of pathology findings (please specify) [ ] Other diagnosis [ ] Unable to determine For continuity of documentation, please document condition throughout progress notes and discharge summary. Thank You. CLINICAL INDICATORS - SIGNS/ SYMPTOMS / LABS H&P p1 01/31 Dr Cheema The pt gives history of having epigastric abdominal pain associated with nausea a with loss of appetite from last 3 days H&P p1 01/31 Dr Cheema the abdominal pain constant pain which is 5 to 6/10 in intensity. H&P p1 01/31 Dr Cheema found to have liver mass H&P p3 01/[address] abdomen and pelvic done shows a13 x 9.3 x 9.5 cm heterogeneous mass in gastrohepatic ligation RISK FACTORS H&P p1 01/31 - history of Chronic Hepatitis C H&P p3 01/31 - Large liver mass Pathologic Diagnosis 02/02 Malignant Carcinoma, most consistent with poorly differentiated hepatocellular carcinoma TREATMENTS MAR 01/31 On 150lml/hr of NS H&P p3 01/31 - hepatitis panel and qualitative titers will obtained GE consult 01/31 Blake Pope Operative report 02/01 EGD Operative report 02/02 Liver Biopsy (This form is maintained as a part of the permanent medical record) 2014 [employer]. All Rights Reserved [email or web address] [not provided] MTDD
== END 2019-02-05 13:46 | disposition home or self-care (01) | DRG 437 ==
LOC: ERS 14:12 → T4-A 16:10 → ERHOLD 02-02 13:39 → T4-A 02-02 13:40
PROVIDERS: ADMIT Internal Medicine; ATTEND Internal Medicine
PROC: 0DJD8ZZ Inspection of Lower Intestinal Tract, Via Natural or Artificial Opening Endoscopic (ICD-10-PCS; 2019-02-01)
PROC: 0DJ08ZZ Inspection of Upper Intestinal Tract, Via Natural or Artificial Opening Endoscopic (ICD-10-PCS; 2019-02-01)
PROC: 0FB03ZX Excision of Liver, Percutaneous Approach, Diagnostic (ICD-10-PCS; principal; 2019-02-02)
DX: C22.0 Liver cell carcinoma (principal); I16.0 Hypertensive urgency; I10 Essential (primary) hypertension; E78.5 Hyperlipidemia, unspecified; M06.9 Rheumatoid arthritis, unspecified; B18.2 Chronic viral hepatitis C; K57.30 Diverticulosis of large intestine without perforation or abscess without bleeding; Z86.73 Personal history of transient ischemic attack (TIA), and cerebral infarction without residual deficits; Z79.899 Other long term (current) drug therapy; Z79.82 Long term (current) use of aspirin; Z87.891 Personal history of nicotine dependence
CPT/HCPCS: 36415; 47000; 71046; 74183; 77012; 80053; 80074; 81001; 82105; 82378; 85025; 87522; 87902; 88307; 88333; 88334; 88341; 88342; 96374; 96375; J0360; J2001; J2250; J2270; J2405; J2704; J3010

== ENCOUNTER 2019-02-27 15:53 | Outpatient (CLI) | payer BC ==
--- NOTE | 2019-02-27 16:29 | CT ---
EXAM: CT of the chest with contrast HISTORY: Liver cancer. Evaluate for metastatic disease. COMPARISON: None TECHNIQUE: Multiple contiguous axial images were obtained in a CT the chest with contrast. Coronal an d sagittal reformats were performed. FINDINGS: HEART: Normal in size without focal cardiac abnormality. Calcifications in the coronary arteries. MEDIASTINUM: No hilar or mediastinal lymphadenopathy. LUNGS: There is a calcified granuloma in the left lower lobe. No suspicious pulmonary nodules identif ied. No focal infiltrates. PLEURAL SPACE: No pneumothorax or pleural effusion. CHEST WALL SOFT TISSUES: Unremarkable OSSEOUS STRUCTURES: No suspicious osseous lesions identified. VISUALIZED SUBDIAPHRAGMATIC STRUCTURES: Large mass occupying the majority of the left lobe of the johnnie er. IMPRESSION: 1. No evidence of intrathoracic metastatic disease 2. Hepatic masses consistent with patient's known hepatic malignancy.
== END 2019-02-27 15:54 | disposition home or self-care (01) ==
LOC: BICCT 15:53
PROVIDERS: ATTEND Internal Medicine Hematology & Oncology
DX: C22.0 Liver cell carcinoma (principal); R16.0 Hepatomegaly, not elsewhere classified
CPT/HCPCS: 71260

== ENCOUNTER 2019-03-09 13:27 | Inpatient (IN) | payer BC, OTHER, SELFPAY ==
[2019-03-09] MEDS ORDERED: Iopamidol-370 76% 500 ML 1 ML ONE (13:42)
[2019-03-09 14:09] LABS: #Lymphocytes 0.7 thou/uL (1.20-3.40); #Monocytes 0.6 thou/uL (0.11-0.59); #Neutrophils 4.9 thou/uL (1.40-6.50); %Basophils 0.8 % (0.0-1.0); %Eosinophils 0.4 % (0.0-10.0); %Lymphocytes 10.8 % (21.0-51.0); %Monocytes 9.6 % (0.0-10.0); %Neutrophils 78.5 % (42.0-75.0); Hemoglobin 11.7 g/dL (14.0-18.0); Mean Corpuscular HGB CONC 32.7 g/dL (32.0-36.0); Mean Corpuscular Hemoglobin 29.4 pg (27.0-31.0); Mean Corpuscular Volume 89.7 fL (78.0-98.0); Mean Platelet Volume 8.6 fL (7.4-10.4); Platelet Count 168 thou/uL (130-400); RBC Distribution Width 13.9 % (11.5-14.5); Red Blood Cell (RBC) Count 3.99 mill/uL (4.70-6.10); White Blood Cell (WBC) Count 6.3 thou/uL (4.8-10.8)
[2019-03-09 14:25] LABS: ALT (SGPT) 72 U/L (8-55); AST (SGOT) 120 U/L (5-34); Albumin 3.5 g/dL (3.4-4.8); Alkaline Phosphatase 109 U/L (40-110); Anion Gap 20 mmol/L (10-20); BUN (Urea Nitrogen) 22 mg/dL (8.4-25.7); Bilirubin, Total 2.4 mg/dL (0.2-1.2); Calc. Creatinine Clearance 0 mL/min (70-130); Calcium 9.8 mg/dL (7.8-10.44); Carbon Dioxide 18 mmol/L (23-31); Chloride 99 mmol/L (98-107); Estimated GFR-MDRD Greater than 90; Globulin 3.8 g/dL (2.4-3.5); Glucose 112 mg/dL (80-115); Lipase 298 U/L (8-78); Potassium 4.8 mmol/L (3.5-5.1); Protein, Total 7.3 g/dL (5.8-8.1); Sodium 132 mmol/L (136-145)
[2019-03-09 15:14] LABS: INR-International Normal Ratio 1.3; Prothrombin Time 15.7 SEC (12.0-14.7)
[2019-03-09 15:15] LABS: PTT 41.7 SEC (22.9-36.1)
[2019-03-09] MEDS ORDERED: Morphine 4 MG/ML VIAL ONE (15:22)
--- NOTE | 2019-03-09 15:44 | CT ---
CT ABDOMEN AND PELVIS WITH CONTRAST: 03/09/19 HISTORY: Abdominal pain. COMPARISON: Abdomen and pelvis CT 01/31/19. FINDINGS: Calcified granuloma left lung base. Large mass of the gastrohepatic ligament has extensive central ne crosis. Relative to the 01/31/19 examination, the mass appears relatively similar in size. Does, howev er, appear to be extensive hepatic metastatic disease. There is transient hepatic attenuation differe nce involving the left lobe of the liver relative to the right. Concern for thrombosis of the anterio r and posterior segment left portal vein. There are very large caudal vessels surrounding the mass. The spleen is enlarged. Mass effect upon the splenic vein with large collaterals. The masses cause extensive mass effect upon the stomach and duodenum. Celiac trunk and superior mesenteric arteries are patent. No hydronephrosis. There is small retroperi toneal periaortic lymph nodes. IMPRESSION: 1. Interval size increase of the hepatic mass from the 01/31/19 CT examination which has increase d by 2 cm in the transverse dimension. 2. Extensive left lobe hepatic metastatic disease with transient hepatic attenuation difference left lobe of the liver, equela of occlusion of the medial and lateral left intrahepatic portal vein. 3. Large collateral vessels along the undersurface of the mass along the caudal aspect. 4. The gastrohepatic ligament mass does cause high grade narrowing of the duodenum which is wrap ped over the mass. POS: CET
[2019-03-09 17:32] LABS: Bilirubin Negative (Negative); Blood, Urine Negative (Negative); Clarity Clear (Clear); Glucose, Urine (Dipstick) Normal (Negative); Leukocyte Negative Leu/uL (Negative); Nitrite Negative (Negative); Protein, Urine (Dipstick) 50 mg/dL (Neg-Trace); Squamous Epithelial 0-3 HPF (0-3); Urobilinogen 6 mg/dL (Less than 2)
[2019-03-09 17:43] LABS: Bacteria/HPF None Seen HPF (None Seen)
[2019-03-09 17:44] LABS: Mucous/LPF 1+ LPF (<2+)
[2019-03-09] MEDS ORDERED: Fleet Enema 133 ML BOT PR PRN (18:28)
[2019-03-09] MEDS ORDERED: Bisacodyl 5 MG TAB PO PRN (18:28)
[2019-03-09] MEDS ORDERED: Ondansetron PF 4 MG/2 ML Vial IVP PRN (18:28)
[2019-03-09] MEDS ORDERED: Guaifenesin DM 100-10/5 ML UDCUP PO PRN (18:28)
[2019-03-09] MEDS ORDERED: Ondansetron ODT 4 MG TAB PO PRN (18:28)
--- NOTE | 2019-03-09 18:57 | HP ---
PRIMARY CARE PHYSICIAN: Carlitos Hernandez MD. CHIEF COMPLAINT: Abdominal pain and nausea. HISTORY OF PRESENT ILLNESS: This is a 63-year-old white male recently diagnosed with hepatocellular carcinoma with a large mass in the mid abdomen in last January. He had a liver biopsy done in the hospital here, was seen in followup with Dr. Phelan and then was noted to have no metastases and was referred for radiation oncology therapy in [place]. The patient was discharged just on Tylenol. His primary care doctor did start him on morphine for the pain. He has not been on any laxatives and he is being constipated, uncertain when his last bowel movement was. His daughter who I talked to her on the phone is on her way and stated that he has been having hallucinations from the morphine, thinks that there are strange people trying to do stuff to him and his house at night. He has been eating very little, just a couple of bites a day and the daughter is very concerned about his hydration status and his strength. He has been too weak for them to be able to make it to see the doctor in [place] for the referral. She expressed that she was hoping that a day or two in the hospital might strength him up enough to go get treatments done. PAST MEDICAL HISTORY: 1. Hepatocellular carcinoma with a large mass, but no metastases in his mid abdomen. 2. Hepatitis C. 3. Hypertension. 4. Dyslipidemia. 5. Previous stroke 4 years ago with left hemiparesis and PEG tube, which has been reversed and he has had no residual paralysis since recovery. 6. Rheumatoid arthritis with deformity of the distal phalanges of both hands. PAST SURGICAL HISTORY: 1. Right hand surgery at 9 years old with transfusions, possibly there is a source of hepatitis C. 2. PEG tube placement and removal. 3. EGD and colonoscopy last night, which were normal. 4. Liver biopsy. SOCIAL HISTORY: The patient smokes one pack per day for 20 years, quit 4 years ago. Drinks 2 mixed drinks a day prior to his cancer diagnosis. Marijuana occasionally. No other drugs. His daughter stays with him as his contracts specialist. FAMILY HISTORY: Mother at age of 88 with a history of coronary artery disease and hypertension and father in his 90s of natural causes. ALLERGIES: NO KNOWN DRUG ALLERGIES. CURRENT MEDICATIONS: 1. Lisinopril 20 mg daily. 2. Morphine 20 mg every 8 hours as needed for pain. 3. Tramadol as needed for pain. The patient was previously also on that was not listed on his ER medication list. He was discharged on, 1. Aspirin 81 mg daily. 2. Lipitor 40 mg daily. 3. Lidoderm patches 2 patches daily. 4. Loratadine 10 mg daily. 5. Tylenol 325 mg every 6 hours as needed for pain. REVIEW OF SYSTEMS: CONSTITUTIONAL: No fevers. No chills. EYES: No double vision or blurred vision. ENT: No congestion, drainage, or sore throat. CARDIOVASCULAR: No chest pain. No palpitations or racing heart. PULMONARY: No coughing, wheezing, or shortness of breath. GASTROINTESTINAL: See HPI. He states he has not vomited any today and just had some nausea on and off and has midepigastric stomach pain where the mass that he can feel it is palpable and has felt kind of a fullness in his lower abdomen. Constipation as per HPI. GENITOURINARY: No dysuria or hematuria. MUSCULOSKELETAL: No muscle aches or joint pains. SKIN: No rashes or lesions noted. NEUROLOGICAL: No numbness, tingling, or focal weakness. Just generalized weakness and weight loss. PSYCHIATRIC: See HPI. PHYSICAL EXAMINATION: VITAL SIGNS: Blood pressure 166/98, pulse 99, respirations 16, temperature 98.0 , O2 saturation 99% on room air. GENERAL: This is a well-developed, well-nourished white male, in no acute distress. A little sleepy from his morphine injection, but easily arousable, in no obvious discomfort. He states that he is not in too much pain as long as he lays on his right side and does not have to move. EYES: Pupils equal, round, and reactive to light. Oropharynx clear without lesions, erythema, or exudate. NECK: Supple. No lymphadenopathy. No thyroid nodules or enlargement. No JVD. HEART: Regular rate and rhythm. No murmurs, rubs, or gallops. LUNGS: Clear to auscultation bilaterally. No wheezes, crackles, or rhonchi. ABDOMEN: The patient has a large palpable protruding mass in his mid epigastric area, going down to his umbilicus. This is tender to palpation. His abdomen is soft below this and is not tender. He does have some bowel sounds. EXTREMITIES: No clubbing, cyanosis, or edema. He does have some generalized cachexia of the muscles. SKIN: No rashes or lesions noted. NEUROLOGICAL: The patient can move all extremities equally and has no facial droop. PSYCHIATRIC: The patient is alert, oriented x3. He does report these hallucinations and believes that these have to deal with treatments that have been ordered by someone at some doctor's office, though he notes that his daughter has told to him these are hallucinations secondary to medication. He is not sure he believes this. He does understand the rest of his diagnosis and the treatment and the doctors who have been taking care of him, though he has a hard time remembering some of the details. LABORATORY DATA: CBC grossly within normal limits, a little bit of anemia, hemoglobin of 11.7. Coagulation profile shows an INR of 1.3, aPTT of 41.7. Complete metabolic panel is notable for sodium of 132, carbon dioxide of 18, total bilirubin of 2.4, stable from last month, AST of 120, ALT of 72, and an albumin normal at 3.5. His lipase is 298, however, it is actually down from 730 last month. Ammonia was normal at 16. Lactic acid was negative. Urinalysis showed 4-6 rbcs and wbcs, but no bacteria. CT of the abdomen and pelvis, I did review the films along with the radiologist's report. It does show enlargement of the hepatocellular carcinoma mass of two more centimeters. There is also mention of gastrohepatic ligament mass causing high-grade narrowing of the duodenum. There is mention of metastatic disease to the left lobe of the liver. I believe that the oncologist just said there are no distal metastases; just local extension of the hepatocellular carcinoma. ASSESSMENT: 1. Hepatocellular carcinoma with advancing symptoms of anorexia, abdominal pain , and cachexia with weakness. The patient appears to be progressing fairly rapidly. I did talk to the daughter on the phone and going to talk to her when she gets to the hospital and appears the patient may be already too weak for any sort of aggressive treatment of this cancer. We will give him fluids overnight and reassess his strength in the morning and we will have them talk with Palliative Care in the morning as well. He may end up needing to just transition to hospice. 2. Poor p.o. intake with duodenal compression of the mass. The patient has reported some vomiting, I am not sure how much. There is no evidence of specific obstruction mentioned on the CT scan. We will try and give him some oral fluids and small amounts of food here in the hospital and see if he can tolerate them. If he does have an obstruction of his intestines from this mass, then we can consider talking with Surgery about some sort of palliative relief if that is possible. 3. Hypertension with history of severe hypertension in last hospitalization. The severe range blood pressure may be related to his pain levels. We will resume his lisinopril and give him p.r.n. blood pressure medications as needed. 4. Hallucinations, likely secondary to patient's morphine. Consider other types of pain medications as they might have less side effects. For now, we will give him IV morphine to try to keep him comfortable while he is in the hospital. We will talk to Palliative Care about other possible options as well. 5. Gastrointestinal prophylaxis. Put the patient on Pepcid twice a day. 6. Constipation. This may be due to poor p.o. intake; however, he is also on a large amount of morphine. I did look at the CT scan. He has gas in his rectum , but there is some stool proximal to that. I will go ahead and start the patient on Senokot two tablets each evening along with some stool softeners, and if he doesn't pass a bowel movement we can try a Fleet enema on him. 7. Deep venous thrombosis prophylaxis. Put the patient on Lovenox subcu. 8. Code status. I did discuss with the patient right now. He is a full code. Should he be incapacitated, his daughter would be his medical decision maker, her name is Yamilet Paige. Job ID: [id number] [facility]
[2019-03-09] MEDS: Sodium Chloride 0.9% 1,000 ML IV SCH (19:51)
[2019-03-09] MEDS: Docusate 100 MG CAP PO SCH (19:52)
[2019-03-09] MEDS: Senokot 8.6 MG TAB PO SCH (19:52)
[2019-03-09] MEDS: Morphine 4 MG/ML VIAL SLOW IVP PRN (19:52)
[2019-03-09] MEDS: Famotidine/PF 20 mg/2ml Vial SLOW IVP SCH (19:52)
[2019-03-09 20:32] VITALS: BMI 17.6
[2019-03-10] MEDS: Morphine 4 MG/ML VIAL SLOW IVP PRN ×4 (01:13→23:32)
[2019-03-10] MEDS: Sodium Chloride 0.9% 1,000 ML IV SCH (03:32)
[2019-03-10 05:02] LABS: #Basophils 0.1 thou/uL (0.0-0.2); #Eosinphils 0.1 thou/uL (0.0-0.7); #Lymphocytes 0.8 thou/uL (1.20-3.40); #Monocytes 0.6 thou/uL (0.11-0.59); #Neutrophils 5.4 thou/uL (1.40-6.50); %Basophils 0.8 % (0.0-1.0); %Monocytes 9.2 % (0.0-10.0); %Neutrophils 78.1 % (42.0-75.0); Hemoglobin 11.1 g/dL (14.0-18.0); Mean Corpuscular HGB CONC 32.6 g/dL (32.0-36.0); Mean Corpuscular Hemoglobin 29.2 pg (27.0-31.0); Mean Corpuscular Volume 89.4 fL (78.0-98.0); Mean Platelet Volume 8.5 fL (7.4-10.4); Platelet Count 169 thou/uL (130-400); Red Blood Cell (RBC) Count 3.81 mill/uL (4.70-6.10); White Blood Cell (WBC) Count 6.9 thou/uL (4.8-10.8)
[2019-03-10 05:21] LABS: Anion Gap 14 mmol/L (10-20); BUN (Urea Nitrogen) 20 mg/dL (8.4-25.7); Calc. Creatinine Clearance 74 mL/min (70-130); Calcium 9.1 mg/dL (7.8-10.44); Carbon Dioxide 22 mmol/L (23-31); Chloride 100 mmol/L (98-107); Estimated GFR-MDRD Greater than 90; Glucose 117 mg/dL (80-115); Potassium 4.1 mmol/L (3.5-5.1); Sodium 132 mmol/L (136-145)
[2019-03-10] MEDS: Docusate 100 MG CAP PO SCH ×2 (08:25→19:12)
[2019-03-10] MEDS: Lisinopril 20 MG TAB PO SCH (08:26)
[2019-03-10] MEDS: Enoxaparin Sodium 40 MG/0.4 ML SYRINGE SC SCH (08:26)
[2019-03-10] MEDS: Famotidine/PF 20 mg/2ml Vial SLOW IVP SCH ×2 (08:26→19:13)
[2019-03-10] MEDS: Aspirin 81 mg Enteric Coated Tablet PO SCH (08:26)
[2019-03-10] MEDS: Polyethylene Glycol 3350 17 GM Packet PO SCH (08:26)
--- NOTE | 2019-03-10 10:05 | PDOC.HOSPP ---
- Subjective Encounter Date: 03/10/19 (f/u HCC) Encounter Time: 10:03 Subjective: Pt reports pain after IV meds is 3/10, he has to lay on his right side and be still to keep it at this level. Had some nausea that was relieved with medication. - Objective Vital Signs & Weight: Vital Signs (12 hours) Temp Pulse Resp BP BP BP Pulse Ox 03/10/19 08:26 167/99 H 03/10/19 07:25 98.8 F 100 18 166/99 H 97 03/10/19 03:00 97.8 F 101 H 16 161/92 H 97 03/09/19 23:38 98.4 F 106 H 16 157/96 H 96 03/09/19 22:28 98.4 F 106 H 16 157/96 H 96 Weight Weight 122 lb 9 oz I&O: 03/09/19 03/10/19 03/11/19 06:59 06:59 06:59 Intake Total 1000 Balance 1000 Result Diagrams: 03/10/19 04:46 03/10/19 04:46 Hospitalist ROS - Medication Medications: Active Medications Generic Name Dose Route Start Last Admin Trade Name Freq PRN Reason Stop Dose Admin Aspirin 81 mg 03/10/19 09:00 03/10/19 08:26 Ecotrin PO 81 mg DAILY RUIZ Administration Docusate Sodium 100 mg 03/09/19 21:00 03/10/19 08:25 Colace PO 100 mg BID RUIZ Administration Enoxaparin Sodium 40 mg 03/10/19 09:00 03/10/19 08:26 Lovenox SC 40 mg 0900 RUIZ Administration Famotidine 20 mg 03/09/19 21:00 03/10/19 08:26 Pepcid SLOW IVP 20 mg Q12HR RUIZ Administration Lisinopril 20 mg 03/10/19 09:00 03/10/19 08:26 Zestril PO 20 mg DAILY RUIZ Administration Polyethylene Glycol 17 gm 03/10/19 09:00 03/10/19 08:26 Miralax PO 17 gm DAILY RUIZ Administration Senna 2 tab 03/09/19 21:00 03/09/19 19:52 Senokot PO 2 tab HS RUIZ Administration Sodium Chloride 10 ml 03/09/19 21:00 03/10/19 08:27 Flush - Normal Saline IVF 10 ml Q12HR RUIZ Administration - Exam General Appearance: NAD Heart: RRR, no murmur Respiratory: CTAB, no wheezes, no rales, no ronchi Gastrointestinal: soft, normal bowel sounds Gastrointestinal - other findings: enlarged with palpable abdominal pass and ttp throughout Hosp A/P (1) Hepatocellular carcinoma Code(s): C22.0 - LIVER CELL CARCINOMA Status: Acute (2) Abdominal pain Code(s): R10.9 - UNSPECIFIED ABDOMINAL PAIN Status: Acute (3) Malnutrition Code(s): E46 - UNSPECIFIED PROTEIN-CALORIE MALNUTRITION Status: Acute Qualifiers: Malnutrition type: protein-calorie malnutrition Protein-calorie malnutrition severity: severe Qualified Code(s): E43 - Unspecified severe protein-calorie malnutrition (4) Hypertension Code(s): I10 - ESSENTIAL (PRIMARY) HYPERTENSION Status: Chronic Qualifiers: Hypertension type: essential hypertension Qualified Code(s): I10 - Essential (primary) hypertension (5) Duodenal obstruction Code(s): K31.5 - OBSTRUCTION OF DUODENUM Status: Acute (6) Hyponatremia Code(s): E87.1 - HYPO-OSMOLALITY AND HYPONATREMIA Status: Acute - Plan HCC with large abdominal mass and obstruction of duodenum - Oncology consult - Pall Care consult - add fentanyl patch low dose to improve pain control - change morphine to q3h prn - continue bowel meds HTN - uncontrolled - likely secondary to pain - continue lisinopril Severe malnutrition secondary to CA - if able to take PO = retail security professional consult - change fluids to D5NS Hyponatremia - stable, monitor DVT prophy - lovenox gi prophy - on famotidine IV - continue code status full reviewed plan of care with patient, no questions or further needs at end of eval
[2019-03-10] MEDS: Dextrose 5 % And 0.9 % NaCl 1,000 ML IV SCH ×2 (11:20→20:52)
--- NOTE | 2019-03-10 16:02 | CON ---
DATE OF CONSULTATION: REASON FOR CONSULTATION: Hepatoma. HISTORY OF PRESENT ILLNESS: Mr. Paige is a 63-year-old gentleman, who in early January was diagnosed with poorly-differentiated hepatocellular carcinoma. He had a 13 x 9.3 x 9.5 cm heterogeneous mass in the gastrohepatic ligament. He also had splenomegaly. His AFP was greater than 100,000. He was seen by Dr. Phelan in the outpatient setting and referred to Dr. Sandhu at [facility] for local therapy such as TACE or Y90. He has lost a significant weight over these past several months, and he has a poor oral intake. He also has constipation. He has been having significant pain and was started by Dr. Phelan on MS Contin and Zofran. He apparently has been having hallucinations secondary to these narcotics. He was brought to the emergency room for weakness, started on IV fluids. He was seen at bedside. He continues to have hallucinations, but says his pain is controlled. The patient had an abdominal and pelvis CT on admission, which showed interval increase of his hepatic mass by 2 cm. He has extensive left lobe hepatic metastatic disease and distention of his vessels. PAST MEDICAL HISTORY: 1. Newly diagnosed hepatoma. 2. Rheumatoid arthritis. 3. Hypertension. 4. Hyperlipidemia. 5. CVA with dysphagia and hemiparesis. 6. Chronic hepatitis C. PAST SURGICAL HISTORY: 1. PEG tube placement and removal. 2. EGD and colonoscopy. 3. Liver biopsy. ALLERGIES: NO KNOWN DRUG ALLERGIES. HOME MEDICATIONS: 1. Atorvastatin. 2. Lisinopril. 3. MS Contin. 4. Zofran and tramadol. FAMILY HISTORY: Noncontributory. SOCIAL HISTORY: He is , has 2 children. He is a former smoker. Daily drinker prior to diagnosis. REVIEW OF SYSTEMS: Positive for nausea, abdominal pain, and poor appetite. PHYSICAL EXAMINATION: VITAL SIGNS: Temperature is 98.6, pulse is 98, respiratory rate 18, BP is 156/90, he is 96% on room air. GENERAL: This is a cachectic male, in no acute distress. HEENT: Normocephalic and atraumatic. Pupils are equal and reactive to light. NECK: Supple. CV: Regular rate and rhythm. LUNGS: Clear. ABDOMEN: He has abdominal distention with tenderness in the right upper quadrant. No ascites. EXTREMITIES: No clubbing or cyanosis. SKIN: No rash. HEMATOLOGICAL: No petechiae or purpura. NEUROLOGIC: The patient is alert, has mild confusion at times. PERTINENT LABS AND X-RAYS: Current WBCs of 6.9, hemoglobin 11.1, hematocrit 34, platelet count is 169,000, 78% neutrophils, 11% lymphocytes. PT is 15.7, INR is 1.3, PTT is 41.7. Sodium 132, potassium 4.1, chloride 100, CO2 is 22, BUN is 20, creatinine 0.79, calcium 9.1, bilirubin 2.4, AST is 120, ALT 72, alkaline phosphatase is 109. Serum total protein is 7.3, albumin 3.5, globulin 3.8. Lipase is 298. ASSESSMENT: 1. Hepatoma with rapid progression over the past month. 2. Cachexia. 3. Hallucinations secondary to narcotics. DISCUSSION: The patient's MS Contin has been adjusted, and he is currently on low-dose fentanyl patch. We discussed the plan including referral to [place] to a surgical oncologist. It is not clear that he understands the plan of care. I do feel he is unlikely to be a candidate for any surgical procedure given his malnutrition. There is the option of Opdivo or lenvatinib locally. Both medications are outpatient medications. Plan to give IV hydration. Adjust his pain medications, and hopefully, he will improve enough to be able to go home and follow up in the clinic to discuss his plan further with Dr. Phelan. Thank you for the consult. Job ID: [id number]
[2019-03-10] MEDS: Senokot 8.6 MG TAB PO SCH (19:12)
[2019-03-11] MEDS: Morphine 4 MG/ML VIAL SLOW IVP PRN (03:24)
[2019-03-11 04:56] LABS: #Eosinphils 0.1 thou/uL (0.0-0.7); #Lymphocytes 0.7 thou/uL (1.20-3.40); #Monocytes 0.6 thou/uL (0.11-0.59); #Neutrophils 4.7 thou/uL (1.40-6.50); %Basophils 0.7 % (0.0-1.0); %Eosinophils 1.6 % (0.0-10.0); %Lymphocytes 11.4 % (21.0-51.0); %Monocytes 10.3 % (0.0-10.0); %Neutrophils 75.9 % (42.0-75.0); Hemoglobin 10.1 g/dL (14.0-18.0); Mean Corpuscular Volume 93.6 fL (78.0-98.0); Mean Platelet Volume 8.1 fL (7.4-10.4); Platelet Count 146 thou/uL (130-400); RBC Distribution Width 14.1 % (11.5-14.5); Red Blood Cell (RBC) Count 3.38 mill/uL (4.70-6.10); White Blood Cell (WBC) Count 6.2 thou/uL (4.8-10.8)
[2019-03-11 05:11] LABS: Anion Gap 12 mmol/L (10-20); BUN (Urea Nitrogen) 11 mg/dL (8.4-25.7); Calc. Creatinine Clearance 89 mL/min (70-130); Calcium 8.5 mg/dL (7.8-10.44); Carbon Dioxide 22 mmol/L (23-31); Chloride 103 mmol/L (98-107); Estimated GFR-MDRD Greater than 90; Glucose 123 mg/dL (80-115); Potassium 3.6 mmol/L (3.5-5.1); Sodium 133 mmol/L (136-145)
[2019-03-11] MEDS: Dextrose 5 % And 0.9 % NaCl 1,000 ML IV SCH ×2 (05:49→15:59)
[2019-03-11] MEDS: Morphine 2 MG/ML SYRINGE SLOW IVP PRN ×4 (08:20→22:25)
[2019-03-11] MEDS: Polyethylene Glycol 3350 17 GM Packet PO SCH (09:33)
[2019-03-11] MEDS: Lisinopril 20 MG TAB PO SCH (09:33)
[2019-03-11] MEDS: Docusate 100 MG CAP PO SCH ×2 (09:33→21:37)
[2019-03-11] MEDS: Enoxaparin Sodium 40 MG/0.4 ML SYRINGE SC SCH (09:33)
[2019-03-11] MEDS: Aspirin 81 mg Enteric Coated Tablet PO SCH (09:33)
[2019-03-11] MEDS: Famotidine/PF 20 mg/2ml Vial SLOW IVP SCH (09:35)
--- NOTE | 2019-03-11 14:56 | PDOC.HOSPP ---
- Subjective Encounter Date: 03/11/19 (f/u HCC/abd mass) Encounter Time: 14:54 Subjective: Pt reports small bm yesterday, low appetite but able to drink fluids. Some nausea, no vomiting. Improvement with bm and passing flatus. Reports pain is improved. Pt reports he is not on low dose aspirin. - Objective Vital Signs & Weight: Vital Signs (12 hours) Temp Pulse Resp BP BP Pulse Ox 03/11/19 09:33 143/85 H 03/11/19 08:00 95 03/11/19 07:54 98.3 F 107 H 15 143/85 H 95 Weight Admit Weight 122 lb 9 oz Weight 122 lb 9 oz I&O: 03/10/19 03/11/19 03/12/19 06:59 06:59 06:59 Intake Total 1000 2540 Balance 1000 2540 Result Diagrams: 03/11/19 04:44 03/11/19 04:44 Hospitalist ROS - Medication Medications: Active Medications Generic Name Dose Route Start Last Admin Trade Name Freq PRN Reason Stop Dose Admin Aspirin 81 mg 03/10/19 09:00 03/11/19 09:33 Ecotrin PO 81 mg DAILY RUIZ Administration Docusate Sodium 100 mg 03/09/19 21:00 03/11/19 09:33 Colace PO 100 mg BID RUIZ Administration Enoxaparin Sodium 40 mg 03/10/19 09:00 03/11/19 09:33 Lovenox SC 40 mg 0900 RUIZ Administration Famotidine 20 mg 03/09/19 21:00 03/11/19 09:35 Pepcid SLOW IVP 20 mg Q12HR RUIZ Administration Fentanyl 12 mcg 03/10/19 11:00 03/10/19 11:20 Duragesic TD 12 mcg Q3D RUIZ Administration Dextrose/Sodium Chloride 1,000 mls @ 100 mls/hr 03/10/19 10:15 03/11/19 05:49 D5 0.9% Ns IV 1,000 mls .Q10H RUIZ Administration Lisinopril 20 mg 03/10/19 09:00 03/11/19 09:33 Zestril PO 20 mg DAILY RUIZ Administration Morphine Sulfate 2 mg 03/10/19 10:02 03/11/19 14:18 Morphine SLOW IVP 2 mg Q3H PRN Administration Mild-Moderate Pain (1-5) Morphine Sulfate 4 mg 03/10/19 10:02 03/11/19 03:24 Morphine SLOW IVP 4 mg Q3H PRN Administration Moderate to Severe Pain (6-10) Polyethylene Glycol 17 gm 03/10/19 09:00 03/11/19 09:33 Miralax PO 17 gm DAILY RUIZ Administration Senna 2 tab 03/09/19 21:00 03/10/19 19:12 Senokot PO Not Given HS RUIZ Sodium Chloride 10 ml 03/09/19 21:00 03/11/19 09:36 Flush - Normal Saline IVF 10 ml Q12HR RUIZ Administration - Exam General Appearance: NAD Heart: RRR, no murmur Respiratory: CTAB, no wheezes, no rales, no ronchi Gastrointestinal: soft, normal bowel sounds Gastrointestinal - other findings: palpable large abdominal mass Extremities: no cyanosis, no clubbing, no edema Hosp A/P (1) Hepatocellular carcinoma Code(s): C22.0 - LIVER CELL CARCINOMA Status: Acute (2) Abdominal pain Code(s): R10.9 - UNSPECIFIED ABDOMINAL PAIN Status: Acute (3) Malnutrition Code(s): E46 - UNSPECIFIED PROTEIN-CALORIE MALNUTRITION Status: Acute Qualifiers: Malnutrition type: protein-calorie malnutrition Protein-calorie malnutrition severity: severe Qualified Code(s): E43 - Unspecified severe protein-calorie malnutrition (4) Hypertension Code(s): I10 - ESSENTIAL (PRIMARY) HYPERTENSION Status: Chronic Qualifiers: Hypertension type: essential hypertension Qualified Code(s): I10 - Essential (primary) hypertension (5) Duodenal obstruction Code(s): K31.5 - OBSTRUCTION OF DUODENUM Status: Acute (6) Hyponatremia Code(s): E87.1 - HYPO-OSMOLALITY AND HYPONATREMIA Status: Acute - Plan HCC with large abdominal mass and obstruction of duodenum - Oncology consult - goal is manage pain with plan for outpatient follow up, consideration of oral chemo which is done as an outpatient - Pall Care consult - uncertain status of this - continue fentanyl patch low dose to improve pain control - continue morphine to q3h prn - continue bowel meds - pt declined miralax, encourage both this and colace as he is on a fentanyl patch. - added prn simethicone HTN - uncontrolled - improved control - continue lisinopril Severe malnutrition secondary to CA - continue nutritional supplements Pt taking more PO - will lower rate of IVF and anticipate this may be stopped tomorrow. d/c aspirin due to report that is not taking this at home Hyponatremia - stable, monitor DVT prophy - lovenox, will d/c scd's gi prophy - change to PO famotidine code status full reviewed plan of care with patient, no questions or further needs at end of eval
[2019-03-11] MEDS ORDERED: Simethicone Chewable 80 MG TAB PO PRN (19:00)
[2019-03-11] MEDS: Famotidine 20 MG TAB PO SCH (21:37)
[2019-03-11] MEDS: Senokot 8.6 MG TAB PO SCH (21:37)
[2019-03-12] MEDS: Morphine 4 MG/ML VIAL SLOW IVP PRN ×3 (01:42→21:19)
[2019-03-12 05:07] LABS: #Eosinphils 0.1 thou/uL (0.0-0.7); #Monocytes 0.7 thou/uL (0.11-0.59); #Neutrophils 6.7 thou/uL (1.40-6.50); %Basophils 0.3 % (0.0-1.0); %Eosinophils 0.7 % (0.0-10.0); %Lymphocytes 11.3 % (21.0-51.0); %Neutrophils 79.8 % (42.0-75.0); Hemoglobin 9.7 g/dL (14.0-18.0); Mean Corpuscular HGB CONC 32.9 g/dL (32.0-36.0); Mean Corpuscular Hemoglobin 29.6 pg (27.0-31.0); Mean Corpuscular Volume 89.9 fL (78.0-98.0); Mean Platelet Volume 8.4 fL (7.4-10.4); Platelet Count 135 thou/uL (130-400); Red Blood Cell (RBC) Count 3.28 mill/uL (4.70-6.10); White Blood Cell (WBC) Count 8.4 thou/uL (4.8-10.8)
[2019-03-12 05:17] LABS: Anion Gap 11 mmol/L (10-20); BUN (Urea Nitrogen) 8 mg/dL (8.4-25.7); Calc. Creatinine Clearance 92 mL/min (70-130); Calcium 8.3 mg/dL (7.8-10.44); Carbon Dioxide 22 mmol/L (23-31); Chloride 102 mmol/L (98-107); Estimated GFR-MDRD Greater than 90; Glucose 110 mg/dL (80-115); Potassium 3.5 mmol/L (3.5-5.1); Sodium 131 mmol/L (136-145)
[2019-03-12] MEDS: Lisinopril 20 MG TAB PO SCH (09:15)
[2019-03-12] MEDS: Docusate 100 MG CAP PO SCH ×2 (09:15→21:19)
[2019-03-12] MEDS: Polyethylene Glycol 3350 17 GM Packet PO SCH (09:16)
[2019-03-12] MEDS: Enoxaparin Sodium 40 MG/0.4 ML SYRINGE SC SCH (09:16)
[2019-03-12] MEDS: Morphine 2 MG/ML SYRINGE SLOW IVP PRN ×2 (09:25→15:11)
[2019-03-12] MEDS: Famotidine 20 MG TAB PO SCH ×2 (09:26→21:20)
[2019-03-12] MEDS: Dextrose 5 % And 0.9 % NaCl 1,000 ML IV SCH (11:12)
--- NOTE | 2019-03-12 13:32 | PDOC.HOSPP ---
- Subjective Encounter Date: 03/12/19 (f/u abd pain) Encounter Time: 13:28 Subjective: Pt thinks the pain is a little better today. Some nausea this morning that resolved, had a BM. Denies any new symptoms. Reports the pain increases between the morphine doses. - Objective Vital Signs & Weight: Vital Signs (12 hours) Temp Pulse Resp BP BP Pulse Ox 03/12/19 09:15 143/85 H 03/12/19 08:20 98.5 F 102 H 16 146/83 H 98 Weight Admit Weight 122 lb 9 oz Weight 122 lb 9 oz I&O: 03/11/19 03/12/19 03/13/19 06:59 06:59 06:59 Intake Total 2540 5464 Balance 2540 5441 Result Diagrams: 03/12/19 04:49 03/12/19 04:49 Hospitalist ROS - Medication Medications: Active Medications Generic Name Dose Route Start Last Admin Trade Name Freq PRN Reason Stop Dose Admin Docusate Sodium 100 mg 03/09/19 21:00 03/12/19 09:15 Colace PO 100 mg BID RUIZ Administration Enoxaparin Sodium 40 mg 03/10/19 09:00 03/12/19 09:16 Lovenox SC 40 mg 0900 RUIZ Administration Famotidine 20 mg 03/11/19 21:00 03/12/19 09:26 Pepcid PO 20 mg BID RUIZ Administration Fentanyl 25 mcg 03/12/19 09:15 03/12/19 09:39 Duragesic TD 25 mcg Q3D RUIZ Administration Dextrose/Sodium Chloride 1,000 mls @ 50 mls/hr 03/11/19 14:54 03/11/19 15:59 D5 0.9% Ns IV 1,000 mls .Q20H RUIZ Administration Lisinopril 20 mg 03/10/19 09:00 03/12/19 09:15 Zestril PO 20 mg DAILY RUIZ Administration Morphine Sulfate 2 mg 03/10/19 10:02 03/12/19 09:25 Morphine SLOW IVP 2 mg Q3H PRN Administration Mild-Moderate Pain (1-5) Morphine Sulfate 4 mg 03/10/19 10:02 03/12/19 06:12 Morphine SLOW IVP 4 mg Q3H PRN Administration Moderate to Severe Pain (6-10) Polyethylene Glycol 17 gm 03/10/19 09:00 03/12/19 09:16 Miralax PO 17 gm DAILY RUIZ Administration Senna 2 tab 03/09/19 21:00 03/11/19 21:37 Senokot PO 2 tab HS RUIZ Administration Simethicone 80 mg 03/11/19 19:00 03/12/19 09:26 Mylicon Chewable PO 80 mg PCHS PRN Administration Gas Pain Sodium Chloride 10 ml 03/09/19 21:00 03/12/19 09:20 Flush - Normal Saline IVF 10 ml Q12HR RUIZ Administration - Exam General Appearance: NAD Heart: RRR, no murmur Respiratory: CTAB, no wheezes, no rales, no ronchi Gastrointestinal: soft, normal bowel sounds Gastrointestinal - other findings: unchanged palpable large abdominal mass Extremities: no cyanosis, no clubbing, no edema Hosp A/P (1) Hepatocellular carcinoma Code(s): C22.0 - LIVER CELL CARCINOMA Status: Acute (2) Abdominal pain Code(s): R10.9 - UNSPECIFIED ABDOMINAL PAIN Status: Acute (3) Malnutrition Code(s): E46 - UNSPECIFIED PROTEIN-CALORIE MALNUTRITION Status: Acute Qualifiers: Malnutrition type: protein-calorie malnutrition Protein-calorie malnutrition severity: severe Qualified Code(s): E43 - Unspecified severe protein-calorie malnutrition (4) Hypertension Code(s): I10 - ESSENTIAL (PRIMARY) HYPERTENSION Status: Chronic Qualifiers: Hypertension type: essential hypertension Qualified Code(s): I10 - Essential (primary) hypertension (5) Duodenal obstruction Code(s): K31.5 - OBSTRUCTION OF DUODENUM Status: Acute (6) Hyponatremia Code(s): E87.1 - HYPO-OSMOLALITY AND HYPONATREMIA Status: Acute - Plan HCC with large abdominal mass and obstruction of duodenum - Oncology consult - goal is manage pain with plan for outpatient follow up, consideration of oral chemo which is done as an outpatient. To f/u tomorrow as by report pt is not interested in going to [place] for care. - Pall Care consult - need to contact tomorrow - increase the fentanyl patch to 25 mcg/hr - add oxycodone low dose as a way to transition to meds that can be take at home. - continue morphine to q3h prn - continue bowel meds HTN - slightly elevated bp's - continue lisinopril Severe malnutrition secondary to CA - continue nutritional supplements Encourage PO intake - continue low rate IVF for now Hyponatremia - stable, monitor DVT prophy - lovenox gi prophy - PO famotidine code status full reviewed plan of care with patient, no questions or further needs at end of eval
[2019-03-12] MEDS: Senokot 8.6 MG TAB PO SCH (21:20)
[2019-03-13] MEDS: Morphine 4 MG/ML VIAL SLOW IVP PRN ×2 (00:46→03:57)
[2019-03-13 05:28] LABS: #Eosinphils 0.1 thou/uL (0.0-0.7); #Lymphocytes 0.8 thou/uL (1.20-3.40); #Monocytes 0.7 thou/uL (0.11-0.59); #Neutrophils 5.7 thou/uL (1.40-6.50); %Basophils 0.3 % (0.0-1.0); %Eosinophils 1.2 % (0.0-10.0); %Lymphocytes 11.2 % (21.0-51.0); %Neutrophils 78.4 % (42.0-75.0); Hemoglobin 9.1 g/dL (14.0-18.0); Mean Corpuscular HGB CONC 32.6 g/dL (32.0-36.0); Mean Corpuscular Hemoglobin 29.4 pg (27.0-31.0); Mean Corpuscular Volume 90.1 fL (78.0-98.0); Mean Platelet Volume 8.8 fL (7.4-10.4); Platelet Count 127 thou/uL (130-400); RBC Distribution Width 14.2 % (11.5-14.5); Red Blood Cell (RBC) Count 3.11 mill/uL (4.70-6.10); White Blood Cell (WBC) Count 7.3 thou/uL (4.8-10.8)
[2019-03-13 05:45] LABS: Anion Gap 10 mmol/L (10-20); BUN (Urea Nitrogen) 8 mg/dL (8.4-25.7); Calc. Creatinine Clearance 95 mL/min (70-130); Calcium 8.3 mg/dL (7.8-10.44); Carbon Dioxide 24 mmol/L (23-31); Chloride 100 mmol/L (98-107); Estimated GFR-MDRD Greater than 90; Glucose 109 mg/dL (80-115); Potassium 3.4 mmol/L (3.5-5.1); Sodium 131 mmol/L (136-145)
--- NOTE | 2019-03-13 07:38 | PDOC.HOSPP ---
- Subjective Encounter Date: 03/13/19 Encounter Time: 13:00 Subjective: Patient with clearing of hallucinations once off oral morphine. IV morphine not causing a problem. Today switched to fentanyl patch with oral oxycodone which he has tolerated well in the past. Trying to eat lunch right now. Taking in oral fluids ok. - Objective Vital Signs & Weight: Vital Signs (12 hours) Temp Pulse Resp BP Pulse Ox 03/12/19 20:00 98.7 F 103 H 24 H 139/83 97 Weight Admit Weight 122 lb 9 oz Weight 122 lb 9 oz I&O: 03/12/19 03/13/19 03/14/19 06:59 06:59 06:59 Intake Total 5441 Balance 5441 Result Diagrams: 03/13/19 05:12 03/13/19 05:12 Hospitalist ROS - Review of Systems Constitutional: denies: fever, chills Respiratory: denies: cough, shortness of breath Cardiovascular: denies: chest pain, palpitations, orthopnea Gastrointestinal: reports: nausea, abdominal pain. denies: vomiting, diarrhea Genitourinary: denies: dysuria, frequency - Medication Medications: Active Medications Generic Name Dose Route Start Last Admin Trade Name Freq PRN Reason Stop Dose Admin Docusate Sodium 100 mg 03/09/19 21:00 03/12/19 21:19 Colace PO 100 mg BID RUIZ Administration Enoxaparin Sodium 40 mg 03/10/19 09:00 03/12/19 09:16 Lovenox SC 40 mg 0900 RUIZ Administration Famotidine 20 mg 03/11/19 21:00 03/12/19 21:20 Pepcid PO 20 mg BID RUIZ Administration Fentanyl 25 mcg 03/12/19 09:15 03/12/19 09:39 Duragesic TD 25 mcg Q3D RUIZ Administration Dextrose/Sodium Chloride 1,000 mls @ 50 mls/hr 03/11/19 14:54 03/12/19 11:12 D5 0.9% Ns IV 1,000 mls .Q20H RUIZ Administration Lisinopril 20 mg 03/10/19 09:00 03/12/19 09:15 Zestril PO 20 mg DAILY RUIZ Administration Morphine Sulfate 2 mg 03/10/19 10:02 03/12/19 15:11 Morphine SLOW IVP 2 mg Q3H PRN Administration Mild-Moderate Pain (1-5) Morphine Sulfate 4 mg 03/10/19 10:02 03/13/19 03:57 Morphine SLOW IVP 4 mg Q3H PRN Administration Moderate to Severe Pain (6-10) Polyethylene Glycol 17 gm 03/10/19 09:00 03/12/19 09:16 Miralax PO 17 gm DAILY RUIZ Administration Senna 2 tab 03/09/19 21:00 03/12/19 21:20 Senokot PO 2 tab HS RUIZ Administration Simethicone 80 mg 03/11/19 19:00 03/12/19 09:26 Mylicon Chewable PO 80 mg PCHS PRN Administration Gas Pain Sodium Chloride 10 ml 03/09/19 21:00 03/12/19 21:20 Flush - Normal Saline IVF 10 ml Q12HR RUIZ Administration - Exam General Appearance: NAD, awake alert General - other findings: cachectic Eye: anicteric sclera Heart: negative: RRR, no murmur, no gallops, no rubs Respiratory: negative: CTAB, no wheezes, no rales, no ronchi Gastrointestinal: non-distended, normal bowel sounds Gastrointestinal - other findings: TOOTIE hard mass, TTP Musculoskeletal: diffuse muscle atrophy Psychiatric: normal affect, normal behavior, A&O x 3 Hosp A/P (1) Hepatocellular carcinoma Code(s): C22.0 - LIVER CELL CARCINOMA Status: Acute (2) Duodenal obstruction Code(s): K31.5 - OBSTRUCTION OF DUODENUM Status: Acute (3) Hyponatremia Code(s): E87.1 - HYPO-OSMOLALITY AND HYPONATREMIA Status: Acute (4) Malnutrition Code(s): E46 - UNSPECIFIED PROTEIN-CALORIE MALNUTRITION Status: Acute Qualifiers: Malnutrition type: protein-calorie malnutrition Protein-calorie malnutrition severity: severe Qualified Code(s): E43 - Unspecified severe protein-calorie malnutrition (5) Hypertension Code(s): I10 - ESSENTIAL (PRIMARY) HYPERTENSION Status: Chronic Qualifiers: Hypertension type: essential hypertension Qualified Code(s): I10 - Essential (primary) hypertension - Plan Consults: Palliative Care Adjusting pain meds, off IV morphine, stopping IV fluids and will see how much he can take in orally today Once stable will need discharge and outpatient followup with Dr. Phelan for possible chemotherapy
[2019-03-13] MEDS: Famotidine 20 MG TAB PO SCH ×2 (08:50→21:55)
[2019-03-13] MEDS: Docusate 100 MG CAP PO SCH ×2 (08:50→21:55)
[2019-03-13] MEDS: Enoxaparin Sodium 40 MG/0.4 ML SYRINGE SC SCH (08:51)
[2019-03-13] MEDS: Lisinopril 20 MG TAB PO SCH (08:53)
[2019-03-13] MEDS: oxyCODONE 5 MG TAB PO PRN ×4 (08:53→22:48)
[2019-03-13] MEDS: Polyethylene Glycol 3350 17 GM Packet PO SCH (08:55)
[2019-03-13] MEDS: Dextrose 5 % And 0.9 % NaCl 1,000 ML IV SCH (14:23)
--- NOTE | 2019-03-13 16:55 | PDOC.MOPN ---
Interval History: Pain controlled. Eating more. - Vital Signs Vital Signs: Vital Signs (12 hours) Temp Pulse Resp BP BP Pulse Ox 03/13/19 08:53 143/85 H 03/13/19 08:00 98.9 F 100 18 128/82 98 Weight Admit Weight 122 lb 9 oz Weight 122 lb 9 oz - Physical Exam General: Alert, Oriented x3, No acute distress HEENT: Atraumatic, PERRLA, EOMI, Mucous membr. moist/pink Lungs: Clear to auscultation, Normal air movement Cardiovascular: Regular rate, Normal S1, Normal S2, No murmurs, Gallops, Rubs Abdomen: Other (firm) Extremities: No clubbing, No cyanosis, No edema, Normal pulses, No tenderness/ swelling Skin: No rashes, No breakdown, No significant lesion Neurological: Normal speech - Labs Result Diagrams: 03/13/19 05:12 03/13/19 05:12 Lab results: Laboratory Results - last 24 hr 03/13/19 05:12: WBC 7.3, RBC 3.11 L, Hgb 9.1 L, Hct 28.0 L, MCV 90.1, MCH 29.4, MCHC 32.6, RDW 14.2, Plt Count 127 L, MPV 8.8, Neutrophils % 78.4 H, Lymphocytes % 11.2 L, Monocytes % 9.0, Eosinophils % 1.2, Basophils % 0.3, Neutrophils # 5.7, Lymphocytes # 0.8 L, Monocytes # 0.7 H, Eosinophils # 0.1, Basophils # 0.0 03/13/19 05:12: Sodium 131 L, Potassium 3.4 L, Chloride 100, Carbon Dioxide 24, Anion Gap 10, BUN 8 L, Creatinine 0.62 L, Estimated GFR (MDRD) Greater than 90 , Glucose 109, Calcium 8.3 Status: lab reviewed by me A/P - Problem (1) Hepatocellular carcinoma Current Visit: Yes Code(s): C22.0 - LIVER CELL CARCINOMA Status: Acute - Plan Plan: Continue current pain medications Home tomorrow so he can make Wednesday appt with Liver specialist in [place] Follow-up Dr. Phelan on Wednesday03/20/19 at 9:45
[2019-03-13] MEDS: Senokot 8.6 MG TAB PO SCH (21:55)
[2019-03-14] MEDS: Dextrose 5 % And 0.9 % NaCl 1,000 ML IV SCH (04:20)
[2019-03-14] MEDS: oxyCODONE 5 MG TAB PO PRN (06:13)
--- NOTE | 2019-03-14 07:31 | PDOC.HOSPP ---
- Subjective Encounter Date: 03/14/19 Encounter Time: 09:30 Subjective: Patient eating better. Up and ambulating. Pain well controlled with Fentanyl patch and oxycodone IR. No hallucinations. Has appt with specialist in [place] tomorrow. Daughter will be here to pick him up at noon. - Objective Vital Signs & Weight: Vital Signs (12 hours) Temp Pulse Resp BP Pulse Ox 03/13/19 19:58 98.8 F 107 H 20 123/72 97 Weight Admit Weight 122 lb 9 oz Weight 122 lb 9 oz Result Diagrams: 03/13/19 05:12 03/13/19 05:12 Hospitalist ROS - Review of Systems Constitutional: denies: fever, chills Respiratory: denies: cough, shortness of breath Cardiovascular: denies: chest pain, palpitations, orthopnea Gastrointestinal: reports: abdominal pain. denies: nausea, vomiting, diarrhea, constipation - Medication Medications: Active Medications Generic Name Dose Route Start Last Admin Trade Name Freq PRN Reason Stop Dose Admin Docusate Sodium 100 mg 03/09/19 21:00 03/13/19 21:55 Colace PO 100 mg BID RUIZ Administration Enoxaparin Sodium 40 mg 03/10/19 09:00 03/13/19 08:51 Lovenox SC 40 mg 0900 RUIZ Administration Famotidine 20 mg 03/11/19 21:00 03/13/19 21:55 Pepcid PO 20 mg BID RUIZ Administration Fentanyl 25 mcg 03/12/19 09:15 03/12/19 09:39 Duragesic TD 25 mcg Q3D RUIZ Administration Dextrose/Sodium Chloride 1,000 mls @ 50 mls/hr 03/11/19 14:54 03/14/19 04:20 D5 0.9% Ns IV Not Given .Q20H RUIZ Lisinopril 20 mg 03/10/19 09:00 03/13/19 08:53 Zestril PO 20 mg DAILY RUIZ Administration Morphine Sulfate 2 mg 03/10/19 10:02 03/12/19 15:11 Morphine SLOW IVP 2 mg Q3H PRN Administration Mild-Moderate Pain (1-5) Morphine Sulfate 4 mg 03/10/19 10:02 03/13/19 03:57 Morphine SLOW IVP 4 mg Q3H PRN Administration Moderate to Severe Pain (6-10) Oxycodone HCl 5 mg 03/12/19 13:31 03/14/19 06:13 Oxycodone Ir PO 5 mg Q4H PRN Administration Mild-Moderate Pain (1-5) Polyethylene Glycol 17 gm 03/10/19 09:00 03/13/19 08:55 Miralax PO 17 gm DAILY RUIZ Administration Senna 2 tab 03/09/19 21:00 03/13/19 21:55 Senokot PO 2 tab HS RUIZ Administration Simethicone 80 mg 03/11/19 19:00 03/12/19 09:26 Mylicon Chewable PO 80 mg PCHS PRN Administration Gas Pain Sodium Chloride 10 ml 03/09/19 21:00 03/13/19 21:00 Flush - Normal Saline IVF Not Given Q12HR RUIZ - Exam General Appearance: NAD Eye: anicteric sclera ENT: moist mucosa Heart: RRR, no murmur, no gallops, no rubs Respiratory: CTAB, no wheezes, no rales, no ronchi Gastrointestinal: soft, normal bowel sounds Gastrointestinal - other findings: TOOTIE palpable tender mass Musculoskeletal: diffuse muscle atrophy Psychiatric: normal affect, normal behavior, A&O x 3 Hosp A/P (1) Hepatocellular carcinoma Code(s): C22.0 - LIVER CELL CARCINOMA Status: Acute (2) Duodenal obstruction Code(s): K31.5 - OBSTRUCTION OF DUODENUM Status: Acute (3) Hyponatremia Code(s): E87.1 - HYPO-OSMOLALITY AND HYPONATREMIA Status: Acute (4) Malnutrition Code(s): E46 - UNSPECIFIED PROTEIN-CALORIE MALNUTRITION Status: Acute Qualifiers: Malnutrition type: protein-calorie malnutrition Protein-calorie malnutrition severity: severe Qualified Code(s): E43 - Unspecified severe protein-calorie malnutrition (5) Hypertension Code(s): I10 - ESSENTIAL (PRIMARY) HYPERTENSION Status: Chronic Qualifiers: Hypertension type: essential hypertension Qualified Code(s): I10 - Essential (primary) hypertension - Plan Adjusting pain meds, off IV morphine, stopped IV fluids and taking in orally a little better Triple Rx written for Oxycodone IR and Fentanyl patches Will d/c today so can get to his appointment in [place] tomorrow for treatment options.
[2019-03-14 08:07] VITALS: TEMP 98.2
[2019-03-14] MEDS: Enoxaparin Sodium 40 MG/0.4 ML SYRINGE SC SCH (08:25)
[2019-03-14] MEDS: Docusate 100 MG CAP PO SCH (08:25)
[2019-03-14] MEDS: Famotidine 20 MG TAB PO SCH (08:25)
[2019-03-14] MEDS: Polyethylene Glycol 3350 17 GM Packet PO SCH (08:25)
[2019-03-14] MEDS: Lisinopril 20 MG TAB PO SCH (08:25)
[2019-03-14 14:03] VITALS: BP 134/75
--- NOTE | 2019-03-14 14:25 | DIS ---
DATE OF ADMISSION: 03/09/2019 DATE OF DISCHARGE: 03/14/2019 PRIMARY CARE PHYSICIAN: Carlitos Hernandez MD PRIMARY ONCOLOGIST: Dr. Phelan. REASON FOR ADMISSION: Uncontrolled abdominal pain from hepatocellular carcinoma. DIAGNOSES AT DISCHARGE: 1. Hepatocellular carcinoma, pain now controlled. 2. Partial duodenal obstruction. 3. Hyponatremia, stable. 4. Severe protein calorie malnutrition. 5. Hypertension. PROCEDURES: CT of the abdomen and pelvis with contrast showing interval size increase in the hepatic mass from the previous month, increased in 2 cm in transverse dimension and with extensive left lobe hepatic metastatic disease, also with evidence of gastrohepatic ligament mass causing high-grade narrowing of the duodenum. CONSULTATIONS: Kaitlyn Blackwell NP for Dr. Phelan. SUMMARY OF HOSPITAL COURSE: This is a 63-year-old white male diagnosed with hepatocellular carcinoma with a large midepigastric abdominal mass one month ago. He had a liver biopsy and then follow up with Dr. Phelan in the outpatient and was referred to a specialist in [place]. The patient was given MS Contin by his primary care doctor for pain. This caused severe constipation and also caused hallucinations. He was not eating well, getting weaker, not able to make his appointment in [place] due to weakness. So, he came back into the hospital. In the hospital, MS Contin was stopped and he was switched to IV morphine, which did not seem to have the hallucinatory side effects. He was given IV fluids and perked up a lot. He was switched to fentanyl patch with oxycodone immediate release as needed and did much better on that. He was able to have his diet advanced and was eating better and was drinking plenty of fluids and having no more hallucinations at time of discharge. Dr. Phelan was consulted and recommended that he see the specialist in [place] to determine all treatment options and if one of his options can be done, the patient continue to follow up with Dr. Phelan for treatment here afterward. The patient was up and ambulatory with assistance and his daughter, who helps care for him will take him home today, so he can make the appointment in [place], which he has for tomorrow. DISCHARGE MANAGEMENT: Discharged home with home health. ACTIVITY: As tolerated. DIET: Regular diet. THERAPIES: Occupational and physical therapy at home. FOLLOWUP: Follow up with Dr. Phelan on March 20 at 9:45 a.m. and with the specialist tomorrow as scheduled. DISCHARGE MEDICATIONS: 1. Colace 100 mg twice a day 60 capsules dispensed. 2. MiraLAX 17 g p.o. daily 30 packs dispensed. 3. Senokot two tablets at night, 60 tablets dispensed. 4. Fentanyl 25 mcg transdermal patch is applied every three days, 5 patches dispensed. 5. Oxycodone immediate release 5 mg every 4 hours as needed for pain, 60 tablets dispensed. 6. Lisinopril 20 mg daily. 7. Atorvastatin 40 mg daily. 8. Ondansetron as needed for nausea and vomiting. TIME SPENT: Arranging the details of this discharge took 32 minutes. Job ID: [id number]
== END 2019-03-14 12:52 | disposition home health service (06) | DRG 435 ==
LOC: ERS 13:27 → INTOOBSV 18:29 → ONC 18:29 → OBSVTOIN 18:29
PROVIDERS: ADMIT Emergency Medicine; ATTEND Emergency Medicine
DX: C22.0 Liver cell carcinoma (principal); E43 Unspecified severe protein-calorie malnutrition; I69.354 Hemiplegia and hemiparesis following cerebral infarction affecting left non-dominant side; R64 Cachexia; K31.5 Obstruction of duodenum; E87.1 Hypo-osmolality and hyponatremia; R44.3 Hallucinations, unspecified; Z68.1 Body mass index [BMI] 19.9 or less, adult; G89.3 Neoplasm related pain (acute) (chronic); I10 Essential (primary) hypertension; E78.5 Hyperlipidemia, unspecified; M06.9 Rheumatoid arthritis, unspecified; K59.00 Constipation, unspecified; B18.2 Chronic viral hepatitis C; R13.10 Dysphagia, unspecified; T40.2X5A Adverse effect of other opioids, initial encounter; Z87.891 Personal history of nicotine dependence; Z79.82 Long term (current) use of aspirin; Z79.899 Other long term (current) drug therapy; I69.391 Dysphagia following cerebral infarction
CPT/HCPCS: 36415; 74177; 80048; 80053; 81003; 81015; 82140; 83605; 83690; 85025; 85610; 85730; 87086; 93005; 96361; 96374; J1650; J2270; Q9967; S0028

== ENCOUNTER 2019-03-29 18:50 | Inpatient (IN) | payer BC, OTHER, SELFPAY ==
[~2019-03-29 18:50] MED LIST: Iopamidol-370 76% 500 ML 1 ML ONE
[2019-03-29 19:55] LABS: #Lymphocytes 1.1 thou/uL (1.20-3.40); #Monocytes 0.8 thou/uL (0.11-0.59); #Neutrophils 15.2 thou/uL (1.40-6.50); %Basophils 0.2 % (0.0-1.0); %Eosinophils 0.2 % (0.0-10.0); %Lymphocytes 6.2 % (21.0-51.0); %Monocytes 4.8 % (0.0-10.0); %Neutrophils 88.7 % (42.0-75.0); Hemoglobin 9.5 g/dL (14.0-18.0); Mean Corpuscular HGB CONC 31.3 g/dL (32.0-36.0); Mean Corpuscular Hemoglobin 31.4 pg (27.0-31.0); Mean Platelet Volume 9.1 fL (7.4-10.4); Platelet Count 179 thou/uL (130-400); RBC Distribution Width 20.4 % (11.5-14.5); Red Blood Cell (RBC) Count 3.04 mill/uL (4.70-6.10); White Blood Cell (WBC) Count 17.1 thou/uL (4.8-10.8)
[2019-03-29 20:05] LABS: INR-International Normal Ratio 1.6; PTT 32.8 SEC (22.9-36.1); Prothrombin Time 19.1 SEC (12.0-14.7)
[2019-03-29] MEDS ORDERED: Morphine 4 MG/ML VIAL ONE (20:08)
[2019-03-29] MEDS ORDERED: Cefepime 2 GM VIAL ONE (20:09)
--- NOTE | 2019-03-29 20:09 | RAD ---
PORTABLE CHEST: 03/29/19 HISTORY: Cough. Heart size and mediastinum are within normal limits. The infiltrative changes seen in the right lung are difficult to appreciate on this exam. Some minimal parenchymal density in the right base. IMPRESSION: Minimal parenchymal changes in the right lung base. POS: H
--- NOTE | 2019-03-29 20:13 | CT ---
CT ANGIO OF CHEST PERFORMED WITH INTRAVENOUS CONTRAST ENHANCEMENT WITH 3D RECONSTRUCTIONS: 03/29/19 HISTORY: Tachycardia, hypoxia. Newly diagnosed with liver cancer by history. There is some ill-defined faint nodular appearing infiltrative type changes in the right upper lobe. This would suggest more of a pneumonic type process. Also some changes within the right lower lobe. L eft lung is clear. The thoracic aorta is normal in caliber. The pulmonary artery opacification is fair. I see no evidenc e for pulmonary embolus. Ascites is present. Large midline upper abdominal mass which has been descri bed on previous CT examination is again demonstrated. IMPRESSION: 1. Patchy infiltrative changes of the right upper and lower lung jc. 2. No CT evidence for pulmonary embolus. 3. Large midline upper abdominal mass which is compatible with the history of liver cancer. Ther e is some mild ascites also noted. POS: [facility]
[2019-03-29 20:17] LABS: Anisocytosis SLIGHT = 6-15 cells (100X) (0-5/hpf); Band 9 % (5-11); Helmet Cells SLIGHT = 2-5 cells (100X) (0-1/hpf); Hypochromia SLIGHT = 6-15 cells (100X) (0-5/hpf); Lymphocytes 8 % (21-51); MDiff Complete? YES; Macrocytosis SLIGHT = 6-15 cells (100X) (0-5/hpf); Monocytes 5 % (0-10); Neutrophil 78 % (42-75); Ovalocytes SLIGHT = 2-5 cells (100X) (0-1/hpf); Platelet Morphology Comment Appears Adequate; Polychromasia SLIGHT = 2-3 cells (100X) (0-2/hpf); Schistocytes SLIGHT = 2-5 cells (100X) (0-1/hpf); Target Cells MODERATE= 6-15 cells (100X) (0-1/hpf)
[2019-03-29 20:18] LABS: ALT (SGPT) 149 U/L (8-55); AST (SGOT) 404 U/L (5-34); Alkaline Phosphatase 230 U/L (40-110); Anion Gap 17 mmol/L (10-20); BUN (Urea Nitrogen) 48 mg/dL (8.4-25.7); Bilirubin, Total 10.7 mg/dL (0.2-1.2); CK (CPK) 253 U/L (30-200); Calc. Creatinine Clearance 0 mL/min (70-130); Calcium 9.1 mg/dL (7.8-10.44); Carbon Dioxide 27 mmol/L (23-31); Chloride 95 mmol/L (98-107); Estimated GFR-MDRD 50; Glucose 105 mg/dL (80-115); Potassium 3.3 mmol/L (3.5-5.1); Sodium 136 mmol/L (136-145)
[2019-03-29] MEDS ORDERED: Acetaminophen 325 MG TAB PO PRN (22:43)
[2019-03-29] MEDS ORDERED: Ondansetron ODT 4 MG TAB SL PRN (22:43)
[2019-03-29] MEDS ORDERED: Ondansetron PF 4 MG/2 ML Vial IVP PRN (22:43)
[2019-03-29 23:09] VITALS: BMI 17.4
[2019-03-29 23:27] LABS: Lactic Acid 4.2 mmol/L (0.5-2.2)
[2019-03-29] MEDS: Sodium Chloride 0.9% 1,000 ML IV SCH (23:48)
--- NOTE | 2019-03-30 02:39 | PDOC.HHP ---
Hospitalist ROS - Medication Medications: Active Medications Generic Name Dose Route Start Last Admin Trade Name Phil PRN Reason Stop Dose Admin Sodium Chloride 1,000 mls @ 125 mls/hr 03/29/19 22:43 03/29/19 23:48 Normal Saline 0.9% IV 03/30/19 09:00 Not Given .Q8H [facility] Hospitalist Results - Labs Result Diagrams: 03/29/19 19:32 03/29/19 19:32 Lab results: WBC 17.1 thou/uL (4.8-10.8) H 03/29/19 19:32 Hgb 9.5 g/dL (14.0-18.0) L 03/29/19 19:32 Hct 30.5 % (42.0-52.0) L 03/29/19 19:32 MCV 100.0 fL (78.0-98.0) H 03/29/19 19:32 Plt Count 179 thou/uL (130-400) 03/29/19 19:32 Neutrophils % 88.7 % (42.0-75.0) H 03/29/19 19:32 Band Neuts % (Manual) 9 % (5-11) 03/29/19 19:32 Sodium 136 mmol/L (136-145) 03/29/19 19:32 Potassium 3.3 mmol/L (3.5-5.1) L 03/29/19 19:32 Chloride 95 mmol/L (98-107) L 03/29/19 19:32 Carbon Dioxide 27 mmol/L (23-31) 03/29/19 19:32 BUN 48 mg/dL (8.4-25.7) H 03/29/19 19:32 Creatinine 1.43 mg/dL (0.7-1.3) H 03/29/19 19:32 Glucose 105 mg/dL (80-115) 03/29/19 19:32 Lactic Acid 4.2 mmol/L (0.5-2.2) H* 03/29/19 22:53 Calcium 9.1 mg/dL (7.8-10.44) 03/29/19 19:32 Total Bilirubin 10.7 mg/dL (0.2-1.2) H 03/29/19 19:32 AST 404 U/L (5-34) H 03/29/19 19:32 ALT 149 U/L (8-55) H 03/29/19 19:32 Alkaline Phosphatase 230 U/L (40-110) H 03/29/19 19:32 Ammonia 27 umol/L (18-72) 03/29/19 19:32 Creatine Kinase 253 U/L (30-200) H 03/29/19 19:32 B-Natriuretic Peptide 34.0 pg/mL (0-100) 03/29/19 19:32 Serum Total Protein 6.0 g/dL (5.8-8.1) 03/29/19 19:32 Albumin 3.0 g/dL (3.4-4.8) L 03/29/19 19:32
[2019-03-30] MEDS: Sodium Chloride 0.9% 1,000 ML IV SCH ×3 (06:04→22:37)
[2019-03-30] MEDS ORDERED: Cefepime 2 GM in Sodium Chloride 0.9% 100 ML IVPB SCH ×2 (08:00→21:00)
[2019-03-30] MEDS ORDERED: Ondansetron PF 4 MG/2 ML Vial IVP PRN (09:29)
[2019-03-30] MEDS ORDERED: Ondansetron ODT 4 MG TAB PO PRN (09:29)
[2019-03-30] MEDS ORDERED: Temazepam 15 MG CAP PO PRN (09:29)
[2019-03-30] MEDS ORDERED: Acetaminophen 325 MG TAB PO PRN (09:29)
[2019-03-30] MEDS: Piperacillin/Tazobactam 3.375 GM in Sodium Chloride 0.9% 100 ML IVPB SCH ×2 (10:28→17:24)
[2019-03-30] MEDS: Morphine 2 MG/ML SYRINGE SLOW IVP PRN ×2 (10:29→14:17)
--- NOTE | 2019-03-30 11:33 | HP ---
PRIMARY CARE PHYSICIAN: Carlitos Hernandez MD CHIEF COMPLAINT: Cough and congestion. HISTORY OF PRESENT ILLNESS: The history of present illness is extremely limited as the patient appears to be either too weak to talk with maybe, so the HPI is taken almost exclusively from the ER records and apparently, the patient has been having generalized weakness throughout the day. He was having body aches and cough. Apparently, he was seen by the occupational therapist and says that he normally is walking and talking, but he has not gotten out of bed and he did want to participate in activities and for this reason, he was brought to the ER. He was evaluated in the emergency room and had a CT scan of the chest, which demonstrated a right lower lobe infiltrate and he is being admitted for further evaluation. Otherwise, I am not able to get any other history other than he says that he denies having any shortness of breath or chest pain, but does admit to having no appetite. REVIEW OF SYSTEMS: Unobtainable due to the patient basically unable to talk. PAST MEDICAL HISTORY: Significant for hepatocellular carcinoma. He is being treated by Dr. Phelan as well as Dr. Sandhu at [facility] in [place]. He has a history of hepatitis C, hypertension, and hyperlipidemia. He has had a previous stroke and also has rheumatoid arthritis. PAST SURGICAL HISTORY: He had right hand surgery, history of a previous PEG tube, and liver biopsy. ALLERGIES: NO KNOWN DRUG ALLERGIES. SOCIAL HISTORY: His granddaughter lives with him. He is a former smoker. He used to smoke a pack a day for 20 years. He quit 4 years ago. Occasional marijuana use. FAMILY HISTORY: Significant for coronary artery disease as well as hypertension in his father and heart disease in the mother. CURRENT MEDICATIONS: These are also taken from the records and include; 1. Atorvastatin 40 mg daily. 2. Lisinopril 20 mg daily. 3. Zofran 8 mg as needed. 4. Colace 100 mg twice daily. 5. Fentanyl patch 25 mcg every 3 days. 6. Oxycodone immediate release 5 mg q.4 hours as needed. 7. MiraLAX 17 g daily. 8. Senokot 8.6 mg 2 tablets at bedtime. PHYSICAL EXAMINATION: GENERAL: The patient is awake and alert. I am unable to assess his orientation. He is very chronically ill in appearance and cachectic. VITAL SIGNS: The blood pressure was 99/48, heart rate 108, respiratory rate of 16, temperature is 97.9, and O2 saturation is 95% on 2 L. HEENT: He has some temporal muscle wasting. His sclerae are icteric. NECK: There is no adenopathy appreciated. LUNGS: Essentially clear to auscultation, although he did have a poor inspiratory effort. There was an occasional rhonchi. CARDIOVASCULAR: He has a normal S1 and S2. There is no S3 or S4. No murmurs, clicks, or rubs. ABDOMEN: Soft. He does have a both visible as well as a large palpable right upper quadrant mass, which is tender to palpation. Bowel sounds are present. EXTREMITIES: There is no clubbing or cyanosis. No edema. NEUROLOGICAL: Grossly nonfocal, although he does have diffuse muscle wasting. On his hands, he has some joint deformities and obliteration of some of his interphalangeal joints on the hands. SKIN AND INTEGUMENT: There are no significant skin changes. No rash. LABORATORY DATA: His lab results, these were from the of this month and the white blood cell count is 17.1, hemoglobin is 9.5, hematocrit is 30.5, and platelet count is 179. INR is 1.6. Sodium is 136, potassium 3.3, chloride is 95, CO2 is 27, BUN of 48, creatinine of 1.43, and glucose is 105. Total bilirubin was 10.7, AST 404, ALT is 149. CK is 253. ASSESSMENT AND PLAN: 1. This is a pleasant 63-year-old gentleman, who presents to the emergency room with cough and generalized weakness. He has a history of advanced liver cancer. He has been found to have an infiltrate by chest x-ray. He also appears to be in acute kidney injury with a creatinine, which has essentially doubled as well as the advanced liver disease. He will be admitted to Oncology, treated with IV antibiotics for the pneumonia, started on gentle IV hydration for the acute kidney injury. 2. For acute kidney injury, start him on gentle hydration and recheck his BMP in the morning. Also with regard to the liver cancer, we will consult Oncology. We will also consult Palliative Care as well as Case Management to assess his home situation and also to help with the goals of care as this appears to be quite advanced and the patient appears to have some symptoms of depression as well. Job ID: [id number]
[2019-03-31] MEDS: Piperacillin/Tazobactam 3.375 GM in Sodium Chloride 0.9% 100 ML IVPB SCH ×4 (00:13→19:13)
[2019-03-31 04:58] LABS: Anion Gap 24 mmol/L (10-20); BUN (Urea Nitrogen) 57 mg/dL (8.4-25.7); Calc. Creatinine Clearance 36 mL/min (70-130); Calcium 8.4 mg/dL (7.8-10.44); Carbon Dioxide 16 mmol/L (23-31); Chloride 106 mmol/L (98-107); Estimated GFR-MDRD 43; Glucose 78 mg/dL (80-115); Potassium 3.4 mmol/L (3.5-5.1); Sodium 143 mmol/L (136-145)
[2019-03-31 04:59] LABS: #Eosinphils 0.1 thou/uL (0.0-0.7); #Lymphocytes 0.7 thou/uL (1.20-3.40); #Monocytes 1.2 thou/uL (0.11-0.59); #Neutrophils 15.7 thou/uL (1.40-6.50); %Eosinophils 0.3 % (0.0-10.0); %Lymphocytes 4.1 % (21.0-51.0); %Monocytes 6.6 % (0.0-10.0); Hemoglobin 8.4 g/dL (14.0-18.0); MDiff Complete? YES; Mean Corpuscular HGB CONC 31.7 g/dL (32.0-36.0); Mean Corpuscular Hemoglobin 32.4 pg (27.0-31.0); Mean Platelet Volume 9.1 fL (7.4-10.4); Platelet Count 135 thou/uL (130-400); RBC Distribution Width 20.6 % (11.5-14.5); Red Blood Cell (RBC) Count 2.59 mill/uL (4.70-6.10); Schistocytes SLIGHT = 2-5 cells (100X) (0-1/hpf); White Blood Cell (WBC) Count 17.7 thou/uL (4.8-10.8)
[2019-03-31] MEDS ORDERED: oxyCODONE 5 MG TAB PO PRN (08:20)
[2019-03-31] MEDS ORDERED: Multivit, Adult Inj 10 ML VIAL IV SCH (08:30)
[2019-03-31] MEDS: Enoxaparin Sodium 30 MG/0.3 ML SYRINGE SC SCH (09:40)
[2019-03-31] MEDS: Multivitamins, Adult 10 ML in D5 0.9% NS w/ 20 mEq KCl 1,000 ML IV SCH ×2 (09:40→20:04)
[2019-03-31] MEDS: Polyethylene Glycol 3350 17 GM Packet PO SCH (09:41)
[2019-03-31] MEDS: D5 0.9% NS w/ 20 mEq KCl 1,000 ML IV SCH ×2 (09:42→19:59)
[2019-03-31] MEDS: Docusate 100 MG CAP PO SCH ×2 (09:42→19:33)
--- NOTE | 2019-03-31 12:09 | PQF ---
LINDA GAVIRIA, NEERAJ DAVILA MD [id number] CLINICAL DOCUMENTATION IMPROVEMENT CLARIFICATION FORM: ICD-10 Updated PLEASE DO AN ADDENDUM TO THE PROGRESS NOTE WITH ANY DOCUMENTATION UPDATES OR ADDITIONS AND CARRY THROUGH TO DC SUMMARY. THANK YOU. Date: 03/31/2019 ATTN: DR. Sukhdeep MIRZA Please exercise your independent, professional judgment in responding to the clarification form. Clinical indicators are provided on the bottom of this form for your review. Please check appropriate box(s): [ x] Protein Calorie Malnutrition: [ ] Mild [ ] Moderate [ x ] Severe [ ] Other Malnutrition (please specify) __ [ ] Underweight without malnutrition [ ] Cachexia [ ] Other diagnosis [ ] Unable to determine In addition, please specify: Present on Admission (POA): [ x ] Yes [ ] No [ ] Unable to determine CLINICAL INDICATORS - SIGNS / SYMPTOMS / LABS / RESULTS AND LOCATION IN MR 03/29 ED REPORT: TRIAGE, PT PRESENTS VIA EMS FROM HOME WITH REPORTS OF WEAKNESS, PT HAS NEW DX OF LIVER CA, HAS SINCE DEMONSTRATED REDUCED APPETITE AND DEPRESSION. 03/30 H&P (NISH) HPI: PT ADMITS TO HAVING NO APPETITE, HX OF PREVIOUS PEG TUBE , 03/30 DIETARY CONSULT (RD) : BMI 17.5 > NUTRITION DX MALNUTRITION R/T DYSPHAGIA EVIDENCED BY PT'S REPORT OF DIFFICULTY TAKING PO DURING RECENT ADMIT, 27.2 % WEIGHT LOSS REPORTED IN 1-2 MONTHS, SEVERE MUSCLE WASTING OBSERVED SUGGESTIVE OF SEVERE MALNUTRITION IN THE CONTEXT OF CHRONIC DISEASE. RISK: DX HEPATOCELLULAR CARCINOMA, PNEUMONIA (H&P/NISH) 03/30 TREATMENTS: DIETARY CONSULT 03/30 ENSURE ENLIVE TID RECOMMENDED 03/30 Moderate Malnutrition (in acute illness) Energy Intake: <75% of estimated energy requirement for > 7 days Weight Loss: 1-2%/1 week; 5%/ 1 month; 7.5%/3 months Other: mild body fat loss; mild muscle mass loss; mild fluid accumulation; Severe Malnutrition (in acute illness) Energy Intake: < 50% of estimated energy requirement for > 5 days Weight Loss: >1-2%/1 week; >5%/1 month; >7.5%/3 months Other: moderate body fat loss; moderate muscle mass loss; moderate- severe fluid accumulation; measurably reduced workers' compensation claims examiner strength Moderate Malnutrition (in chronic illness) Energy Intake: <75% of estimated energy requirement for >1 month Weight Loss: 5%/1 month; 7.5%/3 months; 10%/6 months; 20%/1 year Other: mild body fat loss; mild muscle mass loss; mild fluid accumulation Severe Malnutrition (in chronic illness) Energy Intake: <75% of estimated energy requirement for >1 month Weight Loss: >5%/1 month; >7.5%/3 months; >10%/6 months; >20%/1 year Other: severe body fat loss; severe muscle mass loss; severe fluid accumulation ; measurably reduced workers' compensation claims examiner strength THANK YOU! LAURA (This form is maintained as a part of the permanent medical record) 2014 [employer] All Rights Reserved [email or web address] [phone] [email or web address]
--- NOTE | 2019-03-31 12:18 | PDOC.HOSPP ---
- Subjective Encounter Date: 03/31/19 Encounter Time: 07:00 Subjective: pt is very weak, failed swallow evaluation, he is NPO, he is cachectic - Objective Vital Signs & Weight: Vital Signs (12 hours) Temp Pulse Resp BP Pulse Ox 03/31/19 09:00 98.4 F 110 H 18 103/58 L 94 L 03/31/19 00:30 104 H Weight Admit Weight 122 lb Weight 122 lb I&O: 03/30/19 03/31/19 04/01/19 06:59 06:59 06:59 Intake Total 1050 Output Total 150 Balance -150 1050 Result Diagrams: 03/31/19 04:30 03/31/19 04:30 Radiology Reviewed by me: Yes EKG Reviewed by me: Yes Hospitalist ROS - Review of Systems Constitutional: reports: weakness, malaise. denies: fever, chills, sweats, other Eyes: denies: pain, vision change, conjunctivae inflammation, eyelid inflammation, redness, other ENT: denies: ear pain, ear discharge, nose pain, nose discharge, nose congestion , mouth pain, mouth swelling, throat pain, throat swelling, other Respiratory: reports: shortness of breath, SOB with excertion. denies: cough, dry, hemoptysis, pleuritic pain, sputum, wheezing, other Cardiovascular: denies: chest pain, palpitations, orthopnea, paroxysmal noc. dyspnea, edema, light headedness, other Gastrointestinal: denies: nausea, vomiting, abdominal pain, diarrhea, constipation, melena, hematochezia, other Genitourinary: denies: dysuria, frequency, incontinence, hematuria, retention, other Musculoskeletal: denies: neck pain, shoulder pain, arm pain, back pain, hand pain, leg pain, foot pain, other - Medication Medications: Active Medications Generic Name Dose Route Start Last Admin Trade Name Freq PRN Reason Stop Dose Admin Docusate Sodium 100 mg 03/31/19 09:00 03/31/19 09:42 Colace PO Not Given BID RUIZ Enoxaparin Sodium 30 mg 03/31/19 09:00 03/31/19 09:40 Lovenox SC 30 mg 0900 RUIZ Administration Piperacillin Sod/Tazobactam 100 mls @ 200 mls/hr 03/30/19 12:00 03/31/19 05: 38 Sod 3.375 gm/ Sodium Chloride IVPB 100 mls Q6HR RUIZ Administration Potassium Chloride/Dextrose/Sod Cl 1,000 mls @ 125 mls/hr 03/31/19 08:30 09:42 D5 0.9% Ns W/ 20 Meq Kcl IV Not Given .Q8H RUIZ Multivitamins 10 ml/ Potassium 1,010 mls @ 125 mls/hr 03/31/19 09:15 09:40 Chloride/Dextrose/Sod Cl IV 1,010 mls .Q8H5M RUIZ Administration Polyethylene Glycol 17 gm 03/31/19 09:00 03/31/19 09:41 Miralax PO Not Given DAILY RUIZ Sodium Chloride 10 ml 03/30/19 21:00 03/31/19 09:41 Flush - Normal Saline IVF 10 ml Q12HR RUIZ Administration - Exam General Appearance: ill appearing Eye: PERRL, scleral icterus ENT: normocephalic atraumatic, no oropharyngeal lesions Neck: supple, symmetric, no JVD, no thyromegaly Heart: RRR, no murmur, no gallops Respiratory: no wheezes, rales Respiratory - other findings: right base Gastrointestinal: soft, normal bowel sounds Extremities: no clubbing, no edema Skin: normal turgor, no lesions Neurological: no focal deficits Musculoskeletal: normal tone, generalized weakness, diffuse muscle atrophy Psychiatric: normal affect, normal behavior Hosp A/P (1) Sepsis Code(s): A41.9 - SEPSIS, UNSPECIFIED ORGANISM Status: Acute Qualifiers: Sepsis type: sepsis due to unspecified organism Sepsis acute organ dysfunction status: with acute organ dysfunction Severe sepsis acute organ dysfunction type: acute renal failure Severe sepsis shock status: without septic shock (2) Pneumonia Code(s): J18.9 - PNEUMONIA, UNSPECIFIED ORGANISM Status: Acute Qualifiers: Pneumonia type: aspiration pneumonia Laterality: right Lung location: lower lobe of lung (3) Protein-calorie malnutrition, severe Code(s): E43 - UNSPECIFIED SEVERE PROTEIN-CALORIE MALNUTRITION Status: Chronic (4) Hepatocellular carcinoma Code(s): C22.0 - LIVER CELL CARCINOMA Status: Chronic (5) Macrocytic anemia Code(s): D53.9 - NUTRITIONAL ANEMIA, UNSPECIFIED Status: Chronic (6) Abnormal LFTs Code(s): R94.5 - ABNORMAL RESULTS OF LIVER FUNCTION STUDIES Status: Chronic (7) Dyslipidemia Code(s): E78.5 - HYPERLIPIDEMIA, UNSPECIFIED Status: Chronic (8) Hypertension Code(s): I10 - ESSENTIAL (PRIMARY) HYPERTENSION Status: Chronic Qualifiers: Hypertension type: essential hypertension Qualified Code(s): I10 - Essential (primary) hypertension (9) Lactic acidosis Code(s): E87.2 - ACIDOSIS Status: Acute (10) Hypokalemia Code(s): E87.6 - HYPOKALEMIA Status: Acute - Plan old records reviewed/req, continue antibiotics, bilingual social worker, speech therapy , respiratory therapy 03/31/19 continue zosyn change IVF with Dex NS with 20 meq KCL give multivitamin speech evaluation and start diet as tolerated prognosis is very poor oncology, palliative care on case will repeat labs tomorrow
--- NOTE | 2019-03-31 12:29 | PQF ---
LINDA GAVIRIA, NEERAJ DAVILA MD [id number] CLINICAL DOCUMENTATION IMPROVEMENT CLARIFICATION FORM: ICD-10 Updated PLEASE DO AN ADDENDUM TO THE PROGRESS NOTE WITH ANY DOCUMENTATION UPDATES OR ADDITIONS AND CARRY THROUGH TO DC SUMMARY. THANK YOU. DATE: 03/31/2019 ATTN: DR. Sukhdeep MIRZA Please exercise your independent, professional judgment in responding to the clarification form. Clinical indicators are provided on the bottom of this form for your review. Please check appropriate box(s): [ x ] Acute Respiratory Failure: [ x] with Hypoxia[ ] with Hypercapnia [ ] Acute On Chronic Respiratory Failure: [ ] with Hypoxia [ ] with Hypercapnia [ ] Acute Respiratory Failure due to: (etiology) [ ] Chronic Respiratory Failure only [ ] with Hypoxia [ ] with Hypercapnia [ ] Hypoxia [ ] Other diagnosis [ ] Unable to determine In addition, please specify: Present on Admission (POA): [x ] Yes [ ] No [ ] Unable to determine For continuity of documentation, please document condition throughout progress notes and discharge summary. Thank You. CLINICAL INDICATORS - SIGNS / SYMPTOMS / LABS / RESULTS AND LOCATION IN MR 03/29 ED REPORT: TRIAGE, PT REPORTS VIA EMS FROM HOME WITH C/O WEAKNESS. RESP 18-26, PULSE 108-121, O2 SAT 89% RA > 93-94 % 2L/NC, PT REPORTS COUGH. 03/30 H&P (NISH) A/P: 1) PRESENTS TO ED WITH COUGH AND GENERALIZED WEAKNESS, HE HAS BEEN FOUND TO HAVE AN INFILTRATE BY CHEST X-RAY. PHYSICAL EXAM: LUNGS: ESSENTIALLY CLEAR TO AUSCULTATION, ALTHOUGH HE DID HAVE A POOR INSPIRATORY EFFORT. THERE WAS AN OCCASIONAL RHONCHI RISK: DX PNEUMONIA, FORMER TOBACCO USER, ADVANCED LIVER CANCER (H&P/NISH) 03/29 TREATMENTS: SUPPLEMENTAL OXYGEN (03/29-PRESENT) CXR 03/29 DUONEBS ORDERED PRN 03/29 Acute Respiratory Failure: ABG pH < 7.35 or > 7.45; Decreased oxygen saturation (<90% room air or < 95% on oxygen); PCO2 > 50 mm Hg; PO2 < 60 mm Hg; Labored or rapid respirations ARDS: Dx Criteria [[place] ARDS]: Respiratory symptoms within one week of a known clinical insult (e.g. shock, infection, surgery, trauma) Bilateral opacities in CXR/Chest CT not due to CHF or fluid THANK YOU! LAURA (This form is maintained as a part of the permanent medical record) 2014 [employer]. All Rights Reserved [email or web address] [phone] MTDD
[2019-03-31] MEDS: Senokot 8.6 MG TAB PO SCH (19:33)
--- NOTE | 2019-03-31 22:05 | CON ---
DATE OF CONSULTATION: REASON FOR CONSULT: Hepatocellular carcinoma. HISTORY OF PRESENT ILLNESS: Mr. Paige is an unfortunate 63-year-old gentleman, who was diagnosed with hepatocellular carcinoma in January of 2019. He was symptomatic with pain, poor appetite and significant weight loss on presentation. He was seen by Dr. Sandhu at [facility], the liver surgeon and was told he was not a candidate for any local therapy option based on his extensive locally advanced disease. He was seen by Dr. Phelan on March 23. He was extremely weak and had lost a total of 21 pounds in the last month. He had essentially stopped eating and was cachectic. He was requiring a fentanyl patch and oxycodone for pain. However, the patient still wanted to continue with treatment. The plan was to start Opdivo immunotherapy, if approved by insurance. Yesterday, he was having some cough and worsening weakness and was brought to the emergency room for evaluation. There was a questionable pneumonia, so he was admitted for further treatment. His bilirubin on admission was 10.7, this is up from 7.7 one week prior. The patient was seen at bedside with his sister present. He states his pain is controlled at this time. PAST MEDICAL HISTORY: 1. Hepatocellular carcinoma. 2. Rheumatoid arthritis. 3. Hypertension. 4. Hyperlipidemia. 5. CVA with dysphagia and hemiparesis. 6. Chronic hepatitis C virus. PAST SURGICAL HISTORY: Hand surgery prior to PEG tube placement and liver biopsy. ALLERGIES: NO KNOWN DRUG ALLERGIES. HOME MEDICATIONS: 1. 40 mg daily. 2. Lisinopril 20 mg daily. 3. Colace b.i.d. 4. Fentanyl 25 mcg q.3 days. 5. Oxycodone immediate release 5 mg q.4 hours. 6. MiraLAX. 7. Senokot. FAMILY HISTORY: Mother from liver cancer. SOCIAL HISTORY: has 2 children. Lives alone. Twenty pack-year history of smoking. REVIEW OF SYSTEMS: Unable to obtain secondary to somnolence. He does deny pain. PHYSICAL EXAMINATION: VITAL SIGNS: Temperature is 97.5, pulse is 110, respiratory rate 18, BP is 98/54. He is 97% on 2 L. GENERAL: This is a cachectic male, in no acute distress. HEENT: Normocephalic, atraumatic. Pupils are pin point, constricted. CV: Regular rate and rhythm. LUNGS: Clear anterior. ABDOMEN: Distended and tender. SKIN: Slightly jaundiced. PERTINENT LABS AND X-RAYS: Current WBCs are 17.7, hemoglobin 8.4, hematocrit 26.5, platelets 135,000, 89% neutrophils, 4% lymphocytes. PT is 19.1, INR is 1.6, PTT is 32.8. Sodium 143, potassium 3.4, chloride 106, CO2 16, BUN is 57, creatinine 1.63, lactic acid 4.2, calcium 8.4, bilirubin is 10.7, AST is 404, ALT is 149, alkaline phosphatase is 230, ammonia is 27, creatine kinase is 253. BNP is 34. Serum total protein is 6, albumin 3, globulin 3. IMAGING: CT angio was negative for pulmonary emboli, but did show a patchy infiltrate in the right upper and lower lung jc. ASSESSMENT: 1. Hepatocellular carcinoma with worsening liver function tests and performance status pending approval of Opdivo immunotherapy. DISCUSSION: Discussion with the patient's sister who has spoke with the daughter, they agree that hospice is the best choice for Mr. Paige. I would agree as he is essentially stopped eating and has worsening liver functions. Opdivo is yet to be approved by his insurance. It would of course take several weeks before we would see improvement in his cancer. Palliative Care has seen the patient and has provided a list of hospice agencies. The daughter is to return either today or tomorrow with her choice and he will go home with hospice. Thank you for the consult. Case has been discussed with Dr. Phelan. Job ID: [id number]
[2019-04-01] MEDS: Fentanyl 100 MCG/2 ML VIAL SLOW IVP PRN ×2 (00:33→19:38)
[2019-04-01] MEDS: Piperacillin/Tazobactam 3.375 GM in Sodium Chloride 0.9% 100 ML IVPB SCH ×5 (00:33→23:27)
[2019-04-01] MEDS: D5 0.9% NS w/ 20 mEq KCl 1,000 ML IV SCH (00:40)
[2019-04-01] MEDS: Multivitamins, Adult 10 ML in D5 0.9% NS w/ 20 mEq KCl 1,000 ML IV SCH ×2 (03:02→06:42)
[2019-04-01 06:28] LABS: Lactic Acid 3.8 mmol/L (0.5-2.2)
[2019-04-01 06:34] LABS: ALT (SGPT) 294 U/L (8-55); AST (SGOT) 964 U/L (5-34); Albumin 2.4 g/dL (3.4-4.8); Alkaline Phosphatase 188 U/L (40-110); Anion Gap 18 mmol/L (10-20); BUN (Urea Nitrogen) 64 mg/dL (8.4-25.7); Bilirubin, Total 10.4 mg/dL (0.2-1.2); Calc. Creatinine Clearance 30 mL/min (70-130); Calcium 8.2 mg/dL (7.8-10.44); Carbon Dioxide 18 mmol/L (23-31); Chloride 116 mmol/L (98-107); Estimated GFR-MDRD 35; Globulin 2.9 g/dL (2.4-3.5); Glucose 156 mg/dL (80-115); Magnesium 2.7 mg/dL (1.6-2.6); Protein, Total 5.3 g/dL (5.8-8.1); Sodium 149 mmol/L (136-145)
[2019-04-01] MEDS ORDERED: Multivit, Adult Inj 10 ML VIAL IV SCH (06:45)
[2019-04-01] MEDS ORDERED: Potassium Phosphate 15 MMOL in Sodium Chloride 0.9% 250 ML 250 ML IVPB SCH (07:00)
[2019-04-01 07:12] LABS: #Lymphocytes 0.7 thou/uL (1.20-3.40); #Monocytes 0.9 thou/uL (0.11-0.59); #Neutrophils 12.1 thou/uL (1.40-6.50); %Basophils 0.2 % (0.0-1.0); %Eosinophils 0.2 % (0.0-10.0); %Lymphocytes 5.3 % (21.0-51.0); %Monocytes 6.4 % (0.0-10.0); %Neutrophils 87.9 % (42.0-75.0); Anisocytosis MODERATE=16-30 cells (100X) (0-5/hpf); Hemoglobin 7.8 g/dL (14.0-18.0); MDiff Complete? YES; Mean Corpuscular HGB CONC 31.1 g/dL (32.0-36.0); Mean Corpuscular Hemoglobin 32.3 pg (27.0-31.0); Mean Platelet Volume 9.3 fL (7.4-10.4); Platelet Count 130 thou/uL (130-400); RBC Distribution Width 20.8 % (11.5-14.5); Red Blood Cell (RBC) Count 2.43 mill/uL (4.70-6.10); Schistocytes SLIGHT = 2-5 cells (100X) (0-1/hpf); Target Cells SLIGHT = 2-5 cells (100X) (0-1/hpf); White Blood Cell (WBC) Count 13.8 thou/uL (4.8-10.8)
[2019-04-01] MEDS ORDERED: DEXTROSE IV SCH (08:00)
[2019-04-01] MEDS ORDERED: KCL IV SCH (08:00)
[2019-04-01] MEDS ORDERED: MULTIVITAMINS IV SCH (08:00)
--- NOTE | 2019-04-01 09:39 | PDOC.HOSPP ---
- Subjective Encounter Date: 04/01/19 Encounter Time: 07:00 Subjective: Patient seen and examined. No overnight events - Objective Vital Signs & Weight: Weight Admit Weight 122 lb Weight 122 lb I&O: 03/31/19 04/01/19 04/02/19 06:59 06:59 06:59 Intake Total 1050 1500 Balance 1050 1500 Result Diagrams: 04/01/19 06:00 04/01/19 06:00 Radiology Reviewed by me: Yes EKG Reviewed by me: Yes Hospitalist ROS - Review of Systems ENT: denies: ear pain, ear discharge, nose pain, nose discharge, nose congestion , mouth pain, mouth swelling, throat pain, throat swelling, other Respiratory: denies: cough, dry, shortness of breath, hemoptysis, SOB with excertion, pleuritic pain, sputum, wheezing, other Cardiovascular: denies: chest pain, palpitations, orthopnea, paroxysmal noc. dyspnea, edema, light headedness, other Gastrointestinal: denies: nausea, vomiting, abdominal pain, diarrhea, constipation, melena, hematochezia, other Genitourinary: denies: dysuria, frequency, incontinence, hematuria, retention, other Musculoskeletal: denies: neck pain, shoulder pain, arm pain, back pain, hand pain, leg pain, foot pain, other - Medication Medications: Active Medications Generic Name Dose Route Start Last Admin Trade Name Freq PRN Reason Stop Dose Admin Docusate Sodium 100 mg 03/31/19 09:00 03/31/19 19:33 Colace PO Not Given BID [facility] Enoxaparin Sodium 30 mg 03/31/19 09:00 03/31/19 09:40 Lovenox SC 30 mg 0900 [facility] Administration Fentanyl 25 mcg 03/30/19 18:20 04/01/19 00:33 Sublimaze SLOW IVP 25 mcg Q4HR PRN Administration Moderate to Severe Pain (6-10) Piperacillin Sod/Tazobactam 100 mls @ 200 mls/hr 03/30/19 12:00 04/01/19 05: 34 Sod 3.375 gm/ Sodium Chloride IVPB 100 mls Q6HR RUIZ Administration Potassium Phosphate 15 mmol/ 255 mls @ 62.5 mls/hr 04/01/19 07:00 04/01/19 08 :22 Sodium Chloride IVPB 04/01/19 12:00 255 mls NOW RUIZ Administration Polyethylene Glycol 17 gm 03/31/19 09:00 03/31/19 09:41 Miralax PO Not Given DAILY RUIZ Senna 2 tab 03/31/19 21:00 03/31/19 19:33 Senokot PO Not Given HS RUIZ Sodium Chloride 10 ml 03/30/19 21:00 03/31/19 19:34 Flush - Normal Saline IVF Not Given Q12HR RUIZ Temazepam 15 mg 03/30/19 09:29 03/31/19 19:59 Restoril PO 15 mg HSPRN PRN Administration Insomnia - Exam General Appearance: NAD, awake alert Eye: PERRL, anicteric sclera ENT: normocephalic atraumatic, no oropharyngeal lesions Neck: supple, symmetric, no JVD, no thyromegaly Heart: RRR, no murmur, no gallops, no rubs Respiratory: CTAB, no wheezes, no rales, no ronchi Gastrointestinal: soft, non-distended, normal bowel sounds Extremities: no cyanosis, no clubbing Skin: normal turgor, no lesions Neurological: no focal deficits Musculoskeletal: normal tone, normal strength, generalized weakness, diffuse muscle atrophy Psychiatric: normal affect, normal behavior, lethargic Hosp A/P (1) Sepsis Code(s): A41.9 - SEPSIS, UNSPECIFIED ORGANISM Status: Acute Qualifiers: Sepsis type: sepsis due to unspecified organism Sepsis acute organ dysfunction status: with acute organ dysfunction Severe sepsis acute organ dysfunction type: acute renal failure Severe sepsis shock status: without septic shock (2) Pneumonia Code(s): J18.9 - PNEUMONIA, UNSPECIFIED ORGANISM Status: Acute Qualifiers: Pneumonia type: aspiration pneumonia Laterality: right Lung location: lower lobe of lung (3) Protein-calorie malnutrition, severe Code(s): E43 - UNSPECIFIED SEVERE PROTEIN-CALORIE MALNUTRITION Status: Chronic (4) Hepatocellular carcinoma Code(s): C22.0 - LIVER CELL CARCINOMA Status: Chronic (5) Macrocytic anemia Code(s): D53.9 - NUTRITIONAL ANEMIA, UNSPECIFIED Status: Chronic (6) Abnormal LFTs Code(s): R94.5 - ABNORMAL RESULTS OF LIVER FUNCTION STUDIES Status: Chronic (7) Dyslipidemia Code(s): E78.5 - HYPERLIPIDEMIA, UNSPECIFIED Status: Chronic (8) Hypertension Code(s): I10 - ESSENTIAL (PRIMARY) HYPERTENSION Status: Chronic Qualifiers: Hypertension type: essential hypertension Qualified Code(s): I10 - Essential (primary) hypertension (9) Lactic acidosis Code(s): E87.2 - ACIDOSIS Status: Acute (10) Hypokalemia Code(s): E87.6 - HYPOKALEMIA Status: Acute (11) Hypernatremia Code(s): E87.0 - HYPEROSMOLALITY AND HYPERNATREMIA Status: Acute (12) Hypophosphatemia Code(s): E83.39 - OTHER DISORDERS OF PHOSPHORUS METABOLISM Status: Acute - Plan old records reviewed/req, continue antibiotics Consults: Palliative Care 03/31/19 continue zosyn change IVF with Dex NS with 20 meq KCL give multivitamin speech evaluation and start diet as tolerated prognosis is very poor oncology, palliative care on case will repeat labs tomorrow 04/01/19 pt has very limited free water intake so sodium is high, will change IVF to dex with water and KCL at 125 ml per hour will replace potassium phopshate continue IV antibiotics pt is hospice candidate prognosis is very poor
[2019-04-01] MEDS: Docusate 100 MG CAP PO SCH ×2 (10:02→19:32)
[2019-04-01] MEDS: Enoxaparin Sodium 30 MG/0.3 ML SYRINGE SC SCH (10:02)
[2019-04-01] MEDS: Dextrose 5% w/ 20 mEq KCl 1,000 ML IV SCH ×3 (10:12→21:39)
[2019-04-01] MEDS: Polyethylene Glycol 3350 17 GM Packet PO SCH (10:13)
[2019-04-01] MEDS: Senokot 8.6 MG TAB PO SCH (19:32)
[2019-04-02] MEDS: Piperacillin/Tazobactam 3.375 GM in Sodium Chloride 0.9% 100 ML IVPB SCH ×3 (05:32→17:35)
[2019-04-02] MEDS: Dextrose 5% w/ 20 mEq KCl 1,000 ML IV SCH ×3 (05:36→18:07)
[2019-04-02] MEDS: Enoxaparin Sodium 30 MG/0.3 ML SYRINGE SC SCH (09:51)
[2019-04-02] MEDS: Polyethylene Glycol 3350 17 GM Packet PO SCH (09:54)
[2019-04-02] MEDS: Docusate 100 MG CAP PO SCH ×2 (09:54→20:16)
--- NOTE | 2019-04-02 10:00 | PDOC.HOSPP ---
- Subjective Encounter Date: 04/02/19 Encounter Time: 07:00 Subjective: Patient seen and examined. No overnight events - Objective Vital Signs & Weight: Vital Signs (12 hours) Pulse Resp BP Pulse Ox 04/02/19 08:00 104 H 20 130/63 95 Weight Admit Weight 122 lb Weight 122 lb I&O: 04/01/19 04/02/19 04/03/19 06:59 06:59 06:59 Intake Total 1500 2705 Output Total 155 Balance 1500 2550 Result Diagrams: 04/01/19 06:00 04/01/19 06:00 Hospitalist ROS - Review of Systems ROS unobtainable: due to mental status - Medication Medications: Active Medications Generic Name Dose Route Start Last Admin Trade Name Freq PRN Reason Stop Dose Admin Docusate Sodium 100 mg 03/31/19 09:00 04/01/19 19:32 Colace PO Not Given BID RUIZ Enoxaparin Sodium 30 mg 03/31/19 09:00 04/02/19 09:51 Lovenox SC 30 mg 0900 RUIZ Administration Fentanyl 25 mcg 04/01/19 09:00 04/01/19 11:43 Duragesic TD 25 mcg Q3D RUIZ Administration Fentanyl 25 mcg 03/30/19 18:20 04/01/19 19:38 Sublimaze SLOW IVP 25 mcg Q4HR PRN Administration Moderate to Severe Pain (6-10) Piperacillin Sod/Tazobactam 100 mls @ 200 mls/hr 03/30/19 12:00 04/02/19 05: 32 Sod 3.375 gm/ Sodium Chloride IVPB 100 mls Q6HR RUIZ Administration Potassium Chloride/Dextrose 1,000 mls @ 125 mls/hr 04/01/19 06:45 04/02/19 09 :00 D5w W/ 20 Meq Kcl IV 1,000 mls .Q8H RUIZ Administration Polyethylene Glycol 17 gm 03/31/19 09:00 04/01/19 10:13 Miralax PO Not Given DAILY RUIZ Senna 2 tab 03/31/19 21:00 04/01/19 19:32 Senokot PO Not Given HS RUIZ Sodium Chloride 10 ml 03/30/19 21:00 04/01/19 19:32 Flush - Normal Saline IVF Not Given Q12HR RUIZ Temazepam 15 mg 03/30/19 09:29 03/31/19 19:59 Restoril PO 15 mg HSPRN PRN Administration Insomnia - Exam General Appearance: ill appearing Eye: PERRL, scleral icterus ENT: normocephalic atraumatic, dry oral mucosa Neck: supple, symmetric, no JVD, no thyromegaly Heart: RRR, no murmur, no gallops Respiratory: CTAB, no wheezes, no rales, no ronchi Gastrointestinal: soft, normal bowel sounds Extremities: no edema Skin: normal turgor Psychiatric: lethargic Hosp A/P (1) Sepsis Code(s): A41.9 - SEPSIS, UNSPECIFIED ORGANISM Status: Acute Qualifiers: Sepsis type: sepsis due to unspecified organism Sepsis acute organ dysfunction status: with acute organ dysfunction Severe sepsis acute organ dysfunction type: acute renal failure Severe sepsis shock status: without septic shock (2) Pneumonia Code(s): J18.9 - PNEUMONIA, UNSPECIFIED ORGANISM Status: Acute Qualifiers: Pneumonia type: aspiration pneumonia Laterality: right Lung location: lower lobe of lung (3) Protein-calorie malnutrition, severe Code(s): E43 - UNSPECIFIED SEVERE PROTEIN-CALORIE MALNUTRITION Status: Chronic (4) Hepatocellular carcinoma Code(s): C22.0 - LIVER CELL CARCINOMA Status: Chronic (5) Macrocytic anemia Code(s): D53.9 - NUTRITIONAL ANEMIA, UNSPECIFIED Status: Chronic (6) Abnormal LFTs Code(s): R94.5 - ABNORMAL RESULTS OF LIVER FUNCTION STUDIES Status: Chronic (7) Dyslipidemia Code(s): E78.5 - HYPERLIPIDEMIA, UNSPECIFIED Status: Chronic (8) Hypertension Code(s): I10 - ESSENTIAL (PRIMARY) HYPERTENSION Status: Chronic Qualifiers: Hypertension type: essential hypertension Qualified Code(s): I10 - Essential (primary) hypertension (9) Lactic acidosis Code(s): E87.2 - ACIDOSIS Status: Acute (10) Hypokalemia Code(s): E87.6 - HYPOKALEMIA Status: Acute (11) Hypernatremia Code(s): E87.0 - HYPEROSMOLALITY AND HYPERNATREMIA Status: Acute (12) Hypophosphatemia Code(s): E83.39 - OTHER DISORDERS OF PHOSPHORUS METABOLISM Status: Acute - Plan old records reviewed/req, continue antibiotics 03/31/19 continue zosyn change IVF with Dex NS with 20 meq KCL give multivitamin speech evaluation and start diet as tolerated prognosis is very poor oncology, palliative care on case will repeat labs tomorrow 04/01/19 pt has very limited free water intake so sodium is high, will change IVF to dex with water and KCL at 125 ml per hour will replace potassium phopshate continue IV antibiotics pt is hospice candidate prognosis is very poor 04/02/19 hospice evaluation today continue antibiotics repeat labs tomorrow
[2019-04-02] MEDS: Senokot 8.6 MG TAB PO SCH (20:16)
[2019-04-02 23:35] LABS: Hemoglobin 7.5 g/dL (14.0-18.0)
[2019-04-03] MEDS: Piperacillin/Tazobactam 3.375 GM in Sodium Chloride 0.9% 100 ML IVPB SCH ×4 (00:13→18:30)
[2019-04-03] MEDS: Dextrose 5% w/ 20 mEq KCl 1,000 ML IV SCH ×3 (00:16→14:45)
[2019-04-03 04:48] LABS: ALT (SGPT) 298 U/L (8-55); AST (SGOT) 802 U/L (5-34); Albumin 2.2 g/dL (3.4-4.8); Alkaline Phosphatase 158 U/L (40-110); Anion Gap 25 mmol/L (10-20); BUN (Urea Nitrogen) 91 mg/dL (8.4-25.7); Bilirubin, Total 11.4 mg/dL (0.2-1.2); Calc. Creatinine Clearance 19 mL/min (70-130); Calcium 8.5 mg/dL (7.8-10.44); Carbon Dioxide 14 mmol/L (23-31); Chloride 115 mmol/L (98-107); Estimated GFR-MDRD 20; Globulin 2.7 g/dL (2.4-3.5); Glucose 97 mg/dL (80-115); Potassium 3.5 mmol/L (3.5-5.1); Protein, Total 4.9 g/dL (5.8-8.1); Sodium 150 mmol/L (136-145)
[2019-04-03 05:23] LABS: #Eosinphils 0.1 thou/uL (0.0-0.7); #Lymphocytes 1.4 thou/uL (1.20-3.40); #Monocytes 1.6 thou/uL (0.11-0.59); #Neutrophils 12.8 thou/uL (1.40-6.50); %Basophils 0.2 % (0.0-1.0); %Eosinophils 0.5 % (0.0-10.0); %Lymphocytes 8.8 % (21.0-51.0); %Neutrophils 80.5 % (42.0-75.0); Anisocytosis MODERATE=16-30 cells (100X) (0-5/hpf); Hemoglobin 7.4 g/dL (14.0-18.0); MDiff Complete? YES; Mean Corpuscular HGB CONC 29.5 g/dL (32.0-36.0); Mean Corpuscular Hemoglobin 31.3 pg (27.0-31.0); Mean Platelet Volume 10.6 fL (7.4-10.4); Platelet Count 90 thou/uL (130-400); Platelet Morphology Comment Appears Decreased; RBC Distribution Width 21.5 % (11.5-14.5); Red Blood Cell (RBC) Count 2.35 mill/uL (4.70-6.10); Target Cells SLIGHT = 2-5 cells (100X) (0-1/hpf); White Blood Cell (WBC) Count 15.9 thou/uL (4.8-10.8)
[2019-04-03] MEDS: Enoxaparin Sodium 30 MG/0.3 ML SYRINGE SC SCH (08:42)
[2019-04-03] MEDS: Polyethylene Glycol 3350 17 GM Packet PO SCH (08:43)
[2019-04-03] MEDS: Docusate 100 MG CAP PO SCH (08:43)
--- NOTE | 2019-04-03 10:41 | PDOC.HOSPP ---
- Subjective Encounter Date: 04/03/19 Encounter Time: 07:00 Subjective: Patient seen and examined. No overnight events - Objective Vital Signs & Weight: Vital Signs (12 hours) Temp Pulse Resp BP BP Pulse Ox 04/03/19 07:35 105 H 20 96/54 L 93 L 04/03/19 04:00 97.5 F L 106 H 16 92/50 L 98 04/03/19 00:00 97.4 F L 105 H 16 99/54 L 94 L Weight Admit Weight 122 lb Weight 122 lb I&O: 04/02/19 04/03/19 04/04/19 06:59 06:59 06:59 Intake Total 2705 1250 1500 Output Total 155 9 Balance 2550 1241 1500 Result Diagrams: 04/03/19 03:51 04/03/19 03:51 Hospitalist ROS - Review of Systems ROS unobtainable: due to mental status - Medication Medications: Active Medications Generic Name Dose Route Start Last Admin Trade Name Freq PRN Reason Stop Dose Admin Docusate Sodium 100 mg 03/31/19 09:00 04/03/19 08:43 Colace PO Not Given BID RUIZ Enoxaparin Sodium 30 mg 03/31/19 09:00 04/03/19 08:42 Lovenox SC 30 mg 0900 [facility] Administration Fentanyl 25 mcg 04/01/19 09:00 04/01/19 11:43 Duragesic TD 25 mcg Q3D RUIZ Administration Fentanyl 25 mcg 03/30/19 18:20 04/01/19 19:38 Sublimaze SLOW IVP 25 mcg Q4HR PRN Administration Moderate to Severe Pain (6-10) Piperacillin Sod/Tazobactam 100 mls @ 200 mls/hr 03/30/19 12:00 04/03/19 05: 27 Sod 3.375 gm/ Sodium Chloride IVPB 100 mls Q6HR RUIZ Administration Potassium Chloride/Dextrose 1,000 mls @ 125 mls/hr 04/01/19 06:45 04/03/19 04 :14 D5w W/ 20 Meq Kcl IV 1,000 mls .Q8H RUIZ Administration Polyethylene Glycol 17 gm 03/31/19 09:00 04/03/19 08:43 Miralax PO Not Given DAILY RUIZ Senna 2 tab 03/31/19 21:00 04/02/19 20:16 Senokot PO Not Given HS RUIZ Sodium Chloride 10 ml 03/30/19 21:00 04/03/19 08:44 Flush - Normal Saline IVF Not Given Q12HR RUIZ Temazepam 15 mg 03/30/19 09:29 03/31/19 19:59 Restoril PO 15 mg HSPRN PRN Administration Insomnia - Exam General Appearance: ill appearing Eye: PERRL, scleral icterus ENT: normocephalic atraumatic, dry oral mucosa Neck: supple, symmetric, no JVD Heart: RRR, no murmur, no gallops Respiratory: CTAB, no wheezes, no rales Gastrointestinal: normal bowel sounds Extremities: no cyanosis, no clubbing Musculoskeletal: generalized weakness, diffuse muscle atrophy Hosp A/P (1) Sepsis Code(s): A41.9 - SEPSIS, UNSPECIFIED ORGANISM Status: Acute Qualifiers: Sepsis type: sepsis due to unspecified organism Sepsis acute organ dysfunction status: with acute organ dysfunction Severe sepsis acute organ dysfunction type: acute renal failure Severe sepsis shock status: without septic shock (2) Pneumonia Code(s): J18.9 - PNEUMONIA, UNSPECIFIED ORGANISM Status: Acute Qualifiers: Pneumonia type: aspiration pneumonia Laterality: right Lung location: lower lobe of lung (3) Protein-calorie malnutrition, severe Code(s): E43 - UNSPECIFIED SEVERE PROTEIN-CALORIE MALNUTRITION Status: Chronic (4) Hepatocellular carcinoma Code(s): C22.0 - LIVER CELL CARCINOMA Status: Chronic (5) Macrocytic anemia Code(s): D53.9 - NUTRITIONAL ANEMIA, UNSPECIFIED Status: Chronic (6) Abnormal LFTs Code(s): R94.5 - ABNORMAL RESULTS OF LIVER FUNCTION STUDIES Status: Chronic (7) Dyslipidemia Code(s): E78.5 - HYPERLIPIDEMIA, UNSPECIFIED Status: Chronic (8) Hypertension Code(s): I10 - ESSENTIAL (PRIMARY) HYPERTENSION Status: Chronic Qualifiers: Hypertension type: essential hypertension Qualified Code(s): I10 - Essential (primary) hypertension (9) Lactic acidosis Code(s): E87.2 - ACIDOSIS Status: Acute (10) Hypokalemia Code(s): E87.6 - HYPOKALEMIA Status: Acute (11) Hypernatremia Code(s): E87.0 - HYPEROSMOLALITY AND HYPERNATREMIA Status: Acute (12) Hypophosphatemia Code(s): E83.39 - OTHER DISORDERS OF PHOSPHORUS METABOLISM Status: Acute (13) Acute kidney failure Status: Acute - Plan old records reviewed/req, social insurance specialist 03/31/19 continue zosyn change IVF with Dex NS with 20 meq KCL give multivitamin speech evaluation and start diet as tolerated prognosis is very poor oncology, palliative care on case will repeat labs tomorrow 04/01/19 pt has very limited free water intake so sodium is high, will change IVF to dex with water and KCL at 125 ml per hour will replace potassium phopshate continue IV antibiotics pt is hospice candidate prognosis is very poor 04/02/19 hospice evaluation today continue antibiotics repeat labs tomorrow 04/03/19 pt is declining palliative care to discuss code status inpt hospice appropriate hospice will meet family today will dc to hospice if arranged
[2019-04-03 14:07] VITALS: BP 100/51; TEMP 96.1
--- NOTE | 2019-04-04 12:20 | DIS ---
DATE OF ADMISSION: 03/29/2019 DATE OF DISCHARGE: 04/03/2019 DISCHARGE DISPOSITION: Inpatient hospice. PRIMARY DISCHARGE DIAGNOSES: 1. Acute kidney failure. 2. Pneumonia. 3. Sepsis with acute organ dysfunction. 4. Encephalopathy. 5. Lactic acidosis and hypophosphatemia. SECONDARY DISCHARGE DIAGNOSES: Severe protein calorie malnutrition, hepatocellular carcinoma, macrocytic anemia, thrombocytopenia, hypertension, abnormal LFT, dyslipidemia, and physical deconditioning. PRIMARY PROCEDURE/OPERATION: None. RADIOLOGICAL INVESTIGATION: CT angiography showed right upper and lower lobe pneumonia. No PE or liver mass. SIGNIFICANT LABORATORY DATA: WBC 15.9, hemoglobin 7.4, and platelet 90. INR 1.6. Sodium 150 and creatinine 3.14. AST 802, ALT 298, alkaline phosphatase 158, and albumin 2.2. Lactic acid 4.2. DISCHARGE MEDICATIONS: The patient is discharged to inpatient hospice facility for comfort care. The patient is given following medication. 1. Colace 100 mg p.o. b.i.d. 2. Fentanyl patch every 3 days. 3. Zofran 4 mg q.6 hourly p.r.n. 4. Oxycodone 5 mg q.4 hourly p.r.n. 5. MiraLAX 17 g daily. 6. Senokot two tablets at bedtime. CONTRAINDICATION: None. CODE STATUS: Full code. 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 TEST RESULT PENDING ON DISCHARGE: None. ALLERGIES: NO KNOWN DRUG ALLERGIES. DISCHARGE PLAN: The patient is discharged to inpatient hospice for comfort care. HOSPITAL COURSE: This is a 63-year-old male with advanced liver cancer, who was admitted for worsening of pneumonia and he was meeting sepsis criteria. He was encephalopathic. He was severely cachectic. We treated him with broad-spectrum antibiotic therapy. His condition did not improve. He developed acute kidney failure and severe electrolyte abnormality. The patient became lethargic and somnolent. The patient was DNR. Family member also agreed with DNR. Palliative Care was following while in hospital. Oncology was also following while in hospital. At this point, the patient's prognosis is extremely poor, and by the time of discharge, he was qualify him for inpatient hospice. Hospice team accepted him for comfort care. The patient was seen and examined on the day of discharge. Please see my progress note from that day. The patient was discharged to inpatient hospice care and he was made DNR before discharge. Job ID: [id number]
== END 2019-04-03 19:38 | disposition hospice, inpatient (51) | DRG 871 ==
LOC: ERS 18:50 → ONC 22:32
PROVIDERS: ADMIT Internal Medicine; ATTEND Internal Medicine
DX: A41.9 Sepsis, unspecified organism (principal); G93.41 Metabolic encephalopathy; J69.0 Pneumonitis due to inhalation of food and vomit; E43 Unspecified severe protein-calorie malnutrition; J96.01 Acute respiratory failure with hypoxia; E87.2 Acidosis; N17.9 Acute kidney failure, unspecified; R64 Cachexia; Z68.1 Body mass index [BMI] 19.9 or less, adult; I69.359 Hemiplegia and hemiparesis following cerebral infarction affecting unspecified side; E87.0 Hyperosmolality and hypernatremia; C22.0 Liver cell carcinoma; Z66 Do not resuscitate; R65.20 Severe sepsis without septic shock; E87.6 Hypokalemia; D69.6 Thrombocytopenia, unspecified; I10 Essential (primary) hypertension; E78.5 Hyperlipidemia, unspecified; M06.9 Rheumatoid arthritis, unspecified; D53.9 Nutritional anemia, unspecified; B18.2 Chronic viral hepatitis C; R13.10 Dysphagia, unspecified; E83.39 Other disorders of phosphorus metabolism; Z87.891 Personal history of nicotine dependence; Z79.899 Other long term (current) drug therapy; I69.391 Dysphagia following cerebral infarction
CPT/HCPCS: 36415; 71045; 71275; 80048; 80053; 82140; 82274; 82550; 83605; 83735; 83880; 84100; 85014; 85018; 85025; 85610; 85730; 87040; 93005; 94760; 96365; 96367; 96375; J0692; J1650; J1956; J2270; J2543; J3010; J3480; J3490; J7050; Q9967